=== PATIENT | male | born 1950 | race Caucasian/White ===

== ENCOUNTER 2018-11-20 00:26 | Inpatient (IN) | payer BC, OTHER ==
[~2018-11-20] VITALS: Ht 172.7 cm; Wt 80.7 kg
[~2018-11-20 00:26] MED LIST: AMIO200T PO; AMOX-999 PO; ASPI-1129 PO; ATOR20TA40; CARV6.252 PO; DIGO-91 PO; FAMO40TA12; LISI-424 PO; SACC250C1 PO; SPIR25TA20 PO; XAR10 PO
--- NOTE | 2018-11-20 00:41 | NUR ---
PT TAKEN TO BED 11.
[2018-11-20 00:43] VITALS: BP 151/106
--- NOTE | 2018-11-20 00:52 | NUR ---
Dr. Lim evaluating patient at bedside.
--- NOTE | 2018-11-20 01:03 | NUR ---
PT TO ED WITH C/O SOB FOR PAST 2 DAYS . PT HAS HX OF A.FIB, CHF AND HTN AND HAS BEEN UNABLE TO TAKE MEDICATIONS FOR PAST 2 MONTHS DOES NOT RECALL NAMES OF MEDICATIONS OTHER THAN XARELTO. PT AWAKE AND SPEAKS SENTENCES BUT BECOMES SOB VERY EASILY. LUNG SOUNDS DIMISHED BILATERALLY. PT PLACED INTO BED, ER MD AT BEDSIDE.
[2018-11-20 01:19] LABS: BASOPHILS % (AUTO) 0.4 % (0.0-2.0); EOSINOPHILS # (AUTO) 0.1 K/uL (0-0.4); HEMATOCRIT 40.8 % (36-52); HEMOGLOBIN 13.2 g/dL (12.0-18.0); LYMPHOCYTES # (AUTO) 1.9 K/uL (2.0-11.5); LYMPHOCYTES % (AUTO) 19.4 % (20.5-51.1); MEAN CORPUSCULAR HEMOGLOBIN 25 pg (27-31); MEAN CORPUSCULAR HGB CONC 32 g/dL (33-37); MEAN CORPUSCULAR VOLUME 76.9 fL (80-94); MONOCYTES # (AUTO) 0.7 K/uL (0.8-1.0); MONOCYTES % (AUTO) 7.3 % (1.7-9.3); NEUTROPHILS # (AUTO) 6.9 K/uL (1.8-7.7); NEUTROPHILS % (AUTO) 71.9 % (42.2-75.2); PLATELET COUNT (AUTO) 306 K/uL (140-450); RED CELL DISTRIBUTION WIDTH 18.6 % (11.6-13.7); WHITE BLOOD COUNT (AUTO) 9.7 K/uL (4.8-10.8)
[2018-11-20 01:29] LABS: CARBON DIOXIDE 27.1 mmol/L (21-32); CREATININE 1.1 mg/dL (0.7-1.3); POTASSIUM 4.1 mmol/L (3.5-5.1)
[2018-11-20 01:35] LABS: ALBUMIN 3.4 g/dL (3.4-5.0); TOTAL BILIRUBIN 1.1 mg/dL (0.0-1.0)
[2018-11-20] MEDS ORDERED: DILTIAZEM 25 MG/5 ML VIAL IVP ONE (01:40)
[2018-11-20 01:42] LABS: CREATINE KINASE MB 2.5 ng/mL (0-3.6)
[2018-11-20] MEDS ORDERED: ASPIRIN 325 MG TAB PO ONE (01:45)
--- NOTE | 2018-11-20 03:02 | NUR ---
PT TOLERATED CARDIZEM IV PUSH WITHOUT ANY COMPLICATIONS. HR REMAINS IN 130S. ER MD NOTIFED.
--- NOTE | 2018-11-20 03:30 | NUR ---
INFORMED PT PLAN TO ADMIT, NO NEW QUESTIONS OR CONCERNS.
[2018-11-20] MEDS ORDERED: DOCUSATE SODIUM 100 MG GELCAP PO PRN (03:45)
[2018-11-20] MEDS ORDERED: ONDANSETRON 4 MG/2 ML VIAL IM/IVP PRN (03:45)
[2018-11-20] MEDS ORDERED: ALBUTEROL SULFATE/IPRATROPIU 3 ML SOL IH PRN (03:45)
[2018-11-20] MEDS ORDERED: ACETAMINOPHEN 325 MG TAB PO PRN (03:45)
--- NOTE | 2018-11-20 04:15 | NUR ---
Patient will be admitted to care of DR DIXON. Admited to TELE. Will go to room 125-B. Belongings list completed. Report to PROMISE ÁLVAREZ.
[2018-11-20 04:29] LABS: THYROID STIMULATING HORMONE 2.27 uIU/mL (0.34-3.74)
[2018-11-20 04:30] VITALS: BP 118/76
--- NOTE | 2018-11-20 04:40 | NUR ---
AMBULATED TO WITH STEADY GAIT AND VOIDED FREELY WITH CLEAR YELLOW URINE 150ML, URINE SPECIMEN SENT TO LAB FOR TEST, PT REFUSED TO TAKE OFF HIS PANTS, ENCOURAGE TO TAKE A SHOWER OR BRUSH HIS TEETH BUT PT STATED "NOT RIGHT NOW", DR QUINN MADE AWARE.
[2018-11-20 04:50] LABS: PROTHROMBIN TIME 10.1 secs (10.8-13.4)
[2018-11-20 05:30] LABS: APPEARANCE,URINE CLEAR (CLEAR); BILIRUBIN,URINE NEGATIVE (NEGATIVE); BLOOD, URINE NEGATIVE (NEGATIVE); COLOR,URINE YELLOW (YELLOW); LEUKOCYTE ESTERASE ,URINE NEGATIVE (NEGATIVE); NITRITE, URINE NEGATIVE (NEGATIVE); UGLUCOSE NEGATIVE (NEGATIVE)
[2018-11-20 05:38] LABS: BARBITURATE, URINE NEG. ng/ml (NEG <=200); BENZODIAZEPINE, URINE NEG. ng/mL (NEG <=200); CANNABINOID, URINE NEG. ng/mL (NEG <=50); COCAINE, URINE NEG. ng/mL (NEG <=300); OPIATE, URINE NEG. ng/mL (NEG <=2000); PHENCYCLIDINE SCREEN,URINE NEG. ng/mL (NEG <=25)
--- NOTE | 2018-11-20 06:30 | NUR ---
PT SEEN AWAKE, TACHYPNEIC, MOUTH BREATHER, INSTRUCTED PT TO BREATH THROUGH HIS NOSTRILS, O2 SAT-95% ON 2L NC, MONITORED CLOSELY.
--- NOTE | 2018-11-20 07:12 | NUR ---
PT AWAKE, NO SIGNS OF DISTRESS, BEDSIDE REPORT GIVEN TO PROMISE ALMENDAREZ FOR CONTINUITY OF CARE.
--- NOTE | 2018-11-20 07:14 | NUR ---
RECEIVED BEDSIDE REPORT FROM FIELD ASSEMBLY SUPERVISOR NURSE FOR CONTINUITY OF CARE. PATIENT IS AWAKE AND RESTING ON BED AT THIS TIME. PATIENT IS AAOX4. RESPIRATION EVEN AND UNLABORED ON 2LPM VIA NC, SPO2 IS AT 96%. DENIES PAIN AND SOB. NO SIGNS OF DISTRESS NOTED. IV ON L [id number], INTACT AND CLEAN, SL. SKIN INTACT AND CLEAN. PATIENT IS ABLE TO AMBULATE WITH STANDBY ASSIST. DISCUSSED PLAN OF CARE WITH PATIENT, AND PATIENT VERBALIZED. TELE MONITOR IN PLACE. SPO2 MONITOR BY BEDSIDE. BED IN LOW POSITION AND CALL LIGHT WITHIN REACH. INSTRUCTED PATIENT TO USE THE CALL LIGHT FOR ANY ASSISTANCE, PATIENT IS AWARE.
[2018-11-20 08:00] VITALS: BP 119/87
[2018-11-20] MEDS: NICOTINE TRANSD SYS 21 MG/24 HR PATCH TD SCH (08:58)
[2018-11-20] MEDS ORDERED: LISINOPRIL 5 MG PO SCH (09:00)
[2018-11-20] MEDS ORDERED: DIGOXIN PO SCH (09:00)
[2018-11-20] MEDS: DIGOXIN 0.125 MG TAB PO SCH (09:00)
[2018-11-20] MEDS: LISINOPRIL 5 MG TAB PO SCH (09:02)
--- NOTE | 2018-11-20 09:03 | NUR ---
CHECKED BP PRIOR TO MED ADMINISTER, BP 117/72, MAP 86, PULSE 66. MEDICATION EDUCATION PROVIDED TO PATIENT AND PATIENT VERBALIZED UNDERSTANDING. ADMINISTERED MEDS PER MD ORDER, PATIENT TOLERATED WELL. PATIENT IS LYING DOWN ON BED AND TALKING TO JOHNNY ON THE PHONE. RESPIRATION EVEN AND UNLABORED ON 2LPM VIA NC, SPO2 IS AT 96% AT THIS TIME. NO SIGNS OF DISTRESS NOTED. TELE MONITOR ATTACHED. BED IN LOW POSITION AND CALL LIGHT WITHIN REACH. INSTRUCTED PATIENT TO USE THE CALL LIGHT FOR ANY ASSISTANCE AND PATIENT WAS AWARE.
--- NOTE | 2018-11-20 09:56 | NUR ---
ASSISTED PATIENT TO USE THE BATHROOM AND GET BACK ON BATHROOM. APPLIED 2LPM VIA NC ON PATIENT, AND SPO2 IS 99% THIS TIME. ASKED PATIENT IF HE WOULD LIKE TO TAKE A SHOWER, PATIENT SAID " NOT YET, MAYBE LATER. I DON'T FEEL LIKE IT NOW." SAFETY MEASURES IN PLACE. TELE MONITOR ATTACHED. SPO2 MONITOR ATTACHED. BED IN LOW POSITION AND CALL LIGHT WITHIN REACH. INSTRUCTED PATIENT TO USE THE CALL LIGHT FOR ANY ASSISTANCE AND PATIENT WAS AWARE.
--- NOTE | 2018-11-20 10:09 | NUR ---
RECEIVED CRITICAL VALUE FOR TROPONIN 0.[address] MESA. DR MESA WAS AWARE. PER DR MESA, PATIENT HAS A CONSULT FOR DR JOHANSEN.
--- NOTE | 2018-11-20 11:25 | NUR ---
PATIENT CAME BACK FROM WALKING ON THE [address] WAY. PATIENT DENIES PAIN, LIGHTHEADEDNESS AND SOB. REQUESTED FOR AN APPLE JUICE AND PROVIDED. ASKED IF PATIENT WANT TO TAKE A SHOWER AND PATIENT SAID " NO." INTERNET MARKETING STRATEGIST IS CHANGING PATIENT'S BED. NO SIGNS OF DISTRESS NOTED. TELE MONITOR IN PLACE. SPO2 MONITOR IN PLACE. BED IN LOW POSITION AND CALL LIGHT WITHIN REACH. INSTRUCTED PATIENT TO USE THE CALL LIGHT FOR ANY ASSISTANCE AND PATIENT WAS AWARE.
[2018-11-20 12:00] VITALS: BP 115/69
--- NOTE | 2018-11-20 13:20 | NUR ---
PATIENT IS RESTING ON BED AT THIS TIME. DENIES PAIN AND SOB. NO SIGNS OF DISTRESS NOTED. TELE MONITOR ATTACHED. SAFETY MEASURES IN PLACE. BED IN LOW POSITION AND CALL LIGHT WITHIN REACH. INSTRUCTED PATIENT TO USE THE CALL LIGHT FOR ANY ASSISTANCE AND PATIENT WAS AWARE.
--- NOTE | 2018-11-20 14:05 | NUR ---
PATIENT IS AWAKE AND SITTING UP ON BED. DENIES PAIN AND SOB. ASKED IF PATIENT WOULD LIKE TO TAKE A SHOWER AT THIS TIME, PATIENT SAID " NAH, NOT NOW. I WILL LET YOU KNOW WHEN I WANT TO SHOWER." TELE MONITOR IN PLACE. BED IN LOW POSITION AND CALL LIGHT WITHIN REACH. INSTRUCTED PATIENT TO USE THE CALL LIGHT FOR ANY ASSISTANCE AND PATIENT WAS AWARE.
--- NOTE | 2018-11-20 15:35 | NUR ---
PATIENT IS SITTING UP ON BED AND WATCHING TV. DENIES PAIN AND SOB. NO SIGNS OF DISTRESS NOTED. TELE MONITOR IN PLACE. BED IN LOW POSITION AND CALL LIGHT WITHIN REACH. INSTRUCTED PATIENT TO UES THE CALL LIGHT FOR ANY ASSISTANCE AND PATIENT WAS AWARE.
[2018-11-20 16:00] VITALS: BP 124/82
[2018-11-20] MEDS: RIVAROXABAN 10 MG TAB PO SCH (16:49)
--- NOTE | 2018-11-20 17:24 | NUR ---
PATIENT IS RESTING ON BED AT THIS TIME. NO SIGNS OF DISTRESS NOTED. TELE MONITOR ATTACHED. SAFETY MEASURES IN PLACE. BED IN LOW POSITION AND CALL LIGHT WITHIN REACH. INSTRUCTED PATIENT TO USE THE CALL LIGHT FOR ANY ASSISTANCE AND PATIENT VERBALIZED UNDERSTANDING.
--- NOTE | 2018-11-20 19:18 | NUR ---
ENDORSED PATIENT AT BEDSIDE TO BUNDLE WRAPPER NURSE FOR CONTINUITY OF CARE. PATIENT IS AWAKE AND WATCHING TV ON BED AT THIS TIME. RESPIRATION EVEN AND UNLABORED ON RA, SPO2 IS 96%. NO SIGNS OF DISTRESS NOTED. TELE MONITOR IN PLACE. SAFETY MEASURES IN PLACE.
--- NOTE | 2018-11-20 19:18 | NUR ---
RELIEVED REPORT AT BEDSIDE FORM TANESHA RN DAYSHIFT NURSE AT BEDSIDE FOR CONTINUITY OF CARE, PT IN STABLE CONDITION.
[2018-11-20 20:00] VITALS: BP 96/78
--- NOTE | 2018-11-20 20:00 | NUR ---
PT IN LOW BED WITH SIDE RAILS UP X2. HE IS AOX4, WITH NO S/S OF PAIN OR DISTRESS NOTED. V/S FOLLOWS T 98.7 P 60 R 18 B/P 129/87 02 97%. DERRICK AT BEDSIDE. CALL BERRY IN REACH.
--- NOTE | 2018-11-20 22:00 | NUR ---
PT IN BED NO S/S OF PAIN OT DISTRESS NOTED. FAMILY LEFT BEDSIDE
[2018-11-21] VITALS: BP 112/80
--- NOTE | 2018-11-21 00:15 | NUR ---
PT IN BED ASLEEP BUT AROUSABLE TO NAME AND LIGHT TOUCH.V/S A FOLLOWS T 97.0 P 62 R 18 B/P 96/78 02 97% ON ROOM AIR. NO S/S OF PAIN OR DISTRESS NOTED. PT DANILO ANY PAIN OR DISTRESS.
[2018-11-21 04:00] VITALS: BP 143/88
--- NOTE | 2018-11-21 04:00 | NUR ---
PT IN BED SLEEPING BUT AROUSABLE TO NAME, V/S FOLLOWS T T 97.8 P 62 R 18 B/P 143/88 02 94% ON ROOM AIR.NO S/S OF PAIN OR DISTRESS NOTED.
[2018-11-21 07:09] LABS: BASOPHILS % (AUTO) 0.5 % (0.0-2.0); EOSINOPHILS # (AUTO) 0.1 K/uL (0-0.4); EOSINOPHILS % (AUTO) 1.9 % (0.0-4.0); HEMATOCRIT 41.6 % (36-52); HEMOGLOBIN 13.4 g/dL (12.0-18.0); LYMPHOCYTES # (AUTO) 2.1 K/uL (2.0-11.5); LYMPHOCYTES % (AUTO) 28.2 % (20.5-51.1); MEAN CORPUSCULAR HEMOGLOBIN 25 pg (27-31); MEAN CORPUSCULAR HGB CONC 32 g/dL (33-37); MEAN CORPUSCULAR VOLUME 77.3 fL (80-94); MONOCYTES # (AUTO) 0.8 K/uL (0.8-1.0); MONOCYTES % (AUTO) 10.5 % (1.7-9.3); NEUTROPHILS # (AUTO) 4.4 K/uL (1.8-7.7); NEUTROPHILS % (AUTO) 58.9 % (42.2-75.2); PLATELET COUNT (AUTO) 270 K/uL (140-450); RED BLOOD CELL COUNT(AUTO) 5.39 MIL/uL (4.20-6.10); RED CELL DISTRIBUTION WIDTH 18.7 % (11.6-13.7); WHITE BLOOD COUNT (AUTO) 7.4 K/uL (4.8-10.8)
--- NOTE | 2018-11-21 07:17 | NUR ---
CARE ENDORSED TO ROCHELLE VIRGEN DAYSHIFT NURSE AT BEDSIDE FOR CONTINUITY OF CARE, PT IN STABLE CONDITION.
--- NOTE | 2018-11-21 07:20 | NUR ---
RECEIVED PT FROM EMPLOYEE WELFARE MANAGER NURSE, PT IS AWAKE AND LYING ON THE BED WITH SIDE RAILS UP AND CALL LIGHT WITHIN REACH, PT HAS AN IV LINE ON THE LEFT HAND G.18 ON SALINE LOCK, PT DENIES PAIN AND NO SOB NOTED. WILL MONITOR PT.
[2018-11-21 07:44] LABS: ANION GAP 14.8 (8-16); CARBON DIOXIDE 25.5 mmol/L (21-32); CREATININE 1.1 mg/dL (0.7-1.3); POTASSIUM 4.3 mmol/L (3.5-5.1)
[2018-11-21 07:47] LABS: MAGNESIUM 2.1 mg/dL (1.8-2.4)
[2018-11-21 08:00] VITALS: BP 124/94
--- NOTE | 2018-11-21 08:10 | NUR ---
PT IS AWAKE AND SEATED ON THE BED, VITAL SIGNS CHECKED AND BP IS 124/94, PULSE IS 82, TEMPERATURE IS 98.5, O2 SATURATION IS 99%, RESPIRATION IS 22/MIN AND EVEN.NO SIGN OF DISTRESS NOTED AN WILL MONITOR PT.
--- NOTE | 2018-11-21 09:31 | NUR ---
PATIENT HAS BEEN SCREENED AND CATEGORIZED MODERATE NUTRITION RISK. PATIENT WILL BE SEEN WITHIN 3-5 DAYS OF ADMISSION. 11/22/18-11/24/[address]
[2018-11-21] MEDS: NICOTINE TRANSD SYS 21 MG/24 HR PATCH TD SCH (09:39)
[2018-11-21] MEDS: LISINOPRIL 5 MG TAB PO SCH (09:40)
[2018-11-21] MEDS: DIGOXIN 0.125 MG TAB PO SCH (09:40)
--- NOTE | 2018-11-21 09:42 | NUR ---
PT IS AWAKE AND DR. POOLE CAME AND SPOKE TO PT, V/S CHECKED AND BP IS 115/73, PULSE IS 69. 02 SATURATION IS 97%, MANSI AND PATCH MEDICATIONS WERE GIVEN AND PT TOLERATED IT. NO SIGN OF DISTRESS NOTED AND WILL MONITOR PT.
[2018-11-21 12:00] VITALS: BP 137/94
[2018-11-21] MEDS ORDERED: FUROSEMIDE 20 MG/2 ML VIAL IVP SCH (12:00)
--- NOTE | 2018-11-21 12:08 | NUR ---
PT IS AWAKE AND LASIX WAS GIVEN VIA IV PUSH, V/S CHECKED AND IS STABLE. WILL MONITOR PT.
--- NOTE | 2018-11-21 14:09 | NUR ---
PT'S HEART RATE ON MONITOR WENT UP TO 137, PT VERBALIZED THAT HE FEELS OK. INFORMED DR. NEWTON AND SHOWED EKG READING, SAID THAT IT'S FINE. WILL MONITOR PT
[2018-11-21 16:00] VITALS: BP 128/98
[2018-11-21] MEDS: RIVAROXABAN 10 MG TAB PO SCH (16:48)
--- NOTE | 2018-11-21 16:49 | NUR ---
ORAL MEDICATION WAS GIVEN TO PT NOW, PARAMETER CHECKED. WILL MONITOR PT.
--- NOTE | 2018-11-21 19:05 | NUR ---
RECEIVED PATIENT FOR CONTINUITY OF CARE. PATIENT IS ALERT, AWAKE, LYING DOWN IN BED. ON ROOM AIR. WITH LEFT HAND 18 G SALINE LOCK. PATIENT IS IN STABLE CONDITION. WILL MONITOR PATIENT THROUGHOUT SHIFT.
--- NOTE | 2018-11-21 19:05 | NUR ---
ENDORSED PT TO SPLITTING MACHINE TENDER NURSE FOR CONTINUITY OF CARE.
[2018-11-21 20:00] VITALS: BP 117/71
[2018-11-21] MEDS: FUROSEMIDE 20 MG/2 ML VIAL IVP SCH (20:25)
--- NOTE | 2018-11-21 20:25 | NUR ---
ADMINISTERED LASIX MEDICATION IV PUSH ORDERED. PATIENT TOLERATED IT WELL.
--- NOTE | 2018-11-21 21:45 | NUR ---
CAME AND VISITED PT. PT SITTING ON SIDE OF BED.
--- NOTE | 2018-11-21 23:00 | NUR ---
PATIENT LYING DOWN, ASLEEP, WITH NO SIGNS OF DISTRESS. WILL CONTINUE TO MONITOR PATIENT.
[2018-11-22] VITALS: BP 137/84
--- NOTE | 2018-11-22 | NUR ---
PATIENT LYING DOWN, ASLEEP. VITAL SIGNS TAKEN AND CHARTED. PATIENT DENIES PAIN AT THIS TIME. WILL CONTINUE TO MONITOR PATIENT.
--- NOTE | 2018-11-22 02:05 | NUR ---
MADE ROUNDS. PATIENT LYING DOWN IN BED, ASLEEP WITH NO SIGNS OF DISTRESS. WILL CONTINUE TO MONITOR PATIENT.
[2018-11-22 04:00] VITALS: BP 136/86
--- NOTE | 2018-11-22 06:05 | NUR ---
PATIENT IS LYING DOWN, STILL SLEEPING, WITH NO SIGNS OF DISTRESS. WILL CONTINUE TO MONITOR PATIENT.
--- NOTE | 2018-11-22 07:00 | NUR ---
ENDORSED PATIENT TO AM SHIFT NURSE FOR CONTINUITY OF CARE. PATIENT IS LYING DOWN IN BED, ON STABLE CONDITION.
--- NOTE | 2018-11-22 07:05 | NUR ---
RECEIVED PT FROM BLOW DOWN OPERATOR NURSE, PT IS ASLEEP LYING ON THE BED WITH SIDE RAILS UP AND CALL LIGHT WITHIN REACH, PT HAS AN IV LINE ON THE LEFT HAND G. 18 ON SALINE LOCK, RESPIRATION IS EVEN AND NO SIGN OF DISTRESS NOTED. WILL MONITOR PT.
[2018-11-22 07:08] LABS: ANION GAP 12.9 (8-16); CARBON DIOXIDE 24.9 mmol/L (21-32); CREATININE 1.2 mg/dL (0.7-1.3); POTASSIUM 3.8 mmol/L (3.5-5.1)
[2018-11-22 07:19] LABS: BASOPHILS % (AUTO) 0.7 % (0.0-2.0); EOSINOPHILS # (AUTO) 0.2 K/uL (0-0.4); EOSINOPHILS % (AUTO) 2.9 % (0.0-4.0); HEMATOCRIT 41.3 % (36-52); HEMOGLOBIN 13.5 g/dL (12.0-18.0); LYMPHOCYTES % (AUTO) 30.5 % (20.5-51.1); MEAN CORPUSCULAR HEMOGLOBIN 25 pg (27-31); MEAN CORPUSCULAR HGB CONC 33 g/dL (33-37); MEAN CORPUSCULAR VOLUME 76.5 fL (80-94); MONOCYTES # (AUTO) 0.6 K/uL (0.8-1.0); MONOCYTES % (AUTO) 9.6 % (1.7-9.3); NEUTROPHILS # (AUTO) 3.8 K/uL (1.8-7.7); NEUTROPHILS % (AUTO) 56.3 % (42.2-75.2); PLATELET COUNT (AUTO) 272 K/uL (140-450); RED CELL DISTRIBUTION WIDTH 18.3 % (11.6-13.7); WHITE BLOOD COUNT (AUTO) 6.7 K/uL (4.8-10.8)
[2018-11-22 07:22] LABS: PHOSPHORUS 3.8 mg/dL (2.5-4.9)
--- NOTE | 2018-11-22 07:55 | NUR ---
PT IS AWAKE AND VITAL SIGNS CHECKED DONE, BP IS 99/62, PULSE IS 106, TEMP. IS 97.8, O2 SATURATION IS 93%, RESPIRATION IS EVEN AND AT 18/MIN, NO SIGN OF DISTRESS NOTED AND WILL MONITOR PT.
[2018-11-22 08:00] VITALS: BP 99/62
[2018-11-22] MEDS: NICOTINE TRANSD SYS 21 MG/24 HR PATCH TD SCH (08:54)
[2018-11-22] MEDS: DIGOXIN 0.125 MG TAB PO SCH (08:55)
--- NOTE | 2018-11-22 08:55 | NUR ---
PT IS AWAKE AND VITAL SIGNS CHECKED DONE, BP IS 91/50, PULSE IS 62, O2 SATURATION IS 93%, ORAL MEDICATIONS WERE GIVEN BUT LASIX AND LISINOPRIL WERE NOT GIVEN TO PT AND WERE HELD BECAUSE OF THE LOW BP READING, DR. WOMACK NOTIFIED. NO SIGN OF DISTRESS NOTED AND WILL MONITOR PT.
[2018-11-22] MEDS: FUROSEMIDE 20 MG/2 ML VIAL IVP SCH (08:56)
[2018-11-22] MEDS: LISINOPRIL 5 MG TAB PO SCH (08:56)
[2018-11-22 12:00] VITALS: BP 123/84
--- NOTE | 2018-11-22 12:45 | NUR ---
OPT'S HEART RATE WAS SEEN TO BE 130 IN THE YARD JOCKEY AND PT WAS CHECKED, PT IS ASYMPTOMATIC AND WAS ABOUT TO EAT HIS LUNCH. WILL MONITOR PT.
--- NOTE | 2018-11-22 14:30 | NUR ---
PT WAS BEING CLEANED BY STRETCH BOX TENDER.
[2018-11-22 16:00] VITALS: BP 121/91
[2018-11-22] MEDS: RIVAROXABAN 10 MG TAB PO SCH (16:36)
--- NOTE | 2018-11-22 16:37 | NUR ---
PT IS AWAKE AND PARAMETER CHECKED, ORAL MEDICATION WAS CHECKED AND PT TOLERATED IT. WILL MONITOR PT.
--- NOTE | 2018-11-22 19:28 | NUR ---
ENDORSED PT TO SWEET POTATO DISINTEGRATOR NURSE FOR CONTINUITY OF CARE.
--- NOTE | 2018-11-22 19:29 | NUR ---
RECEIVED BEDSIDE REPORT FROM DAY SHIFT PROMISE BYRD. PT A/OX 4. DISCUSSED PLAN OF CARE. VERBALIZED UNDERSTANDING. ABLE TO MAKE NEEDS KNOWN. STD PRECAUTIONS. CONTINENT. AMBULATORY. STEADY GAIT. AT BEDSIDE. TELE MONITOR. CARDIAC DIET. ROOM AIR. NO SIGNS OF DISTRESS. SKIN IS INTACT. L HAND 18G SALINE LOCK. PATENT AND INTACT. BED IN LOW POSITION. CALL LIGHT WITHIN REACH. WILL CONTINUE TO MONITOR.
[2018-11-22 20:00] VITALS: BP 138/78
--- NOTE | 2018-11-22 21:00 | NUR ---
PT REQUESTED TO BE MOVED FROM ROOM. AND TO CALL TO TAKE HIM HOME DUE TO MUCH PEOPLE IN THE ROOM TALKING WITH THE PATIENT IN BED A. I ASKED PT IF WE CAN GET HIM SETTLED INTO ANOTHER ROOM WHERE IT WILL BE MORE QUIET. HE AGREED.
--- NOTE | 2018-11-22 21:52 | NUR ---
ROOM IS READY FOR PT IN BED A TO BE MOVED. PT IN BED (A) FAMILY IS STILL AT BEDSIDE. MADE PT AWARE THAT ROOM IS READY FOR PT IN BED A TO BE MOVED. WAITING ON NURSE FOR BED A. WILL CONTINUE TO MONITOR.
--- NOTE | 2018-11-22 22:30 | NUR ---
PT NO LONGER SHARING THE ROOM. BED A WAS MOVED TO ANOTHER ROOM. PT STATES HES MORE COMFORTABLE AND HE WILL STAY IN THE HOSPITAL AND NO LONGER BE LEAVING.
[2018-11-23] VITALS: BP 120/77
--- NOTE | 2018-11-23 00:10 | NUR ---
VITALS TAKEN. TOLERATED WELL. 98.2 TEMP. 120/77 BP. 97%. 119 PULSE. PT REMAINS TACHYCARDIC. WILL CONTINUE TO MONITOR.
--- NOTE | 2018-11-23 01:55 | NUR ---
ASSISTED PT TO BATHROOM. AMBULATORY. STEADY GAIT. BACK IN BED. NO SIGNS OF RESP DISTRESS. NO SOB. WILL CONTINUE TO MONITOR.
--- NOTE | 2018-11-23 03:34 | NUR ---
PT IS AWAKE IN BED. NO PAIN REPORTED. NO SOB. NO SIGNS OF DISTRESS. WILL CONTINUE TO MONITOR.
[2018-11-23 04:00] VITALS: BP 118/75
--- NOTE | 2018-11-23 05:04 | NUR ---
PT IS SLEEPING IN BED EASILY AROUSABLE. EVEN CHEST RISE. NO SOB. NO SIGNS OF DISTRESS. NO PAIN AT THIS TIME. WILL CONTINUE TO MONITOR.
[2018-11-23 05:43] LABS: ANION GAP 11.7 (8-16); CARBON DIOXIDE 26.6 mmol/L (21-32); CREATININE 1.3 mg/dL (0.7-1.3); POTASSIUM 4.3 mmol/L (3.5-5.1)
--- NOTE | 2018-11-23 06:38 | NUR ---
WILL ENDORSE PT TO DAY SHIFT RN FOR CONTINUITY OF CARE. PT IN STABLE CONDITION. WILL CONTINUE TO MONITOR.
[2018-11-23 06:50] LABS: BASOPHILS % (AUTO) 0.6 % (0.0-2.0); EOSINOPHILS # (AUTO) 0.2 K/uL (0-0.4); EOSINOPHILS % (AUTO) 2.4 % (0.0-4.0); HEMATOCRIT 42.3 % (36-52); HEMOGLOBIN 13.6 g/dL (12.0-18.0); LYMPHOCYTES # (AUTO) 2.4 K/uL (2.0-11.5); LYMPHOCYTES % (AUTO) 32.5 % (20.5-51.1); MEAN CORPUSCULAR HEMOGLOBIN 25 pg (27-31); MEAN CORPUSCULAR HGB CONC 32 g/dL (33-37); MEAN CORPUSCULAR VOLUME 77.2 fL (80-94); MONOCYTES # (AUTO) 0.6 K/uL (0.8-1.0); MONOCYTES % (AUTO) 8.6 % (1.7-9.3); NEUTROPHILS # (AUTO) 4.1 K/uL (1.8-7.7); NEUTROPHILS % (AUTO) 55.9 % (42.2-75.2); PLATELET COUNT (AUTO) 297 K/uL (140-450); RED BLOOD CELL COUNT(AUTO) 5.48 MIL/uL (4.20-6.10); RED CELL DISTRIBUTION WIDTH 18.6 % (11.6-13.7); WHITE BLOOD COUNT (AUTO) 7.4 K/uL (4.8-10.8)
--- NOTE | 2018-11-23 07:20 | NUR ---
RECEIVED BEDSIDE REPORT FROM PHARMACY CUSTOMER CARE SPECIALIST NURSE. PT IS ASLEEP, NO S/S OF ANY ACUTE DISTRESS OR SOB. PT IS ON ROOM AIR, SKIN IS INTACT. IV IS ON THE L HAND, 18 G, SALINE LOCKED. PT IS AMBULATORY AND NOT A FALL RISK. PT IS ON 1500 ML/DAY FLUID RESTRICTION. CALL LIGHT IS WITHIN REACH. WILL CONTINUE TO MONITOR.
[2018-11-23 08:00] VITALS: BP 99/77
[2018-11-23] MEDS ORDERED: FURO20TA8 PO (08:05)
[2018-11-23] MEDS ORDERED: POTA10TE30 PO (08:05)
[2018-11-23] MEDS ORDERED: POTASSIUM CHLORIDE 10 MEQ TABER PO SCH (09:00)
[2018-11-23] MEDS ORDERED: FUROSEMIDE 20 MG TAB PO SCH (09:00)
[2018-11-23] MEDS: LISINOPRIL 5 MG TAB PO SCH (09:53)
[2018-11-23] MEDS: DIGOXIN 0.125 MG TAB PO SCH (09:54)
[2018-11-23] MEDS: NICOTINE TRANSD SYS 21 MG/24 HR PATCH TD SCH (09:54)
[2018-11-23] MEDS ORDERED: PNEUMOCOCCAL VACCINE 23 MCG/0.5 ML VIAL IMVAC SCH (11:50)
--- NOTE | 2018-11-23 14:17 | NUR ---
PT'S DERRICK CALLED BACK, I TOLD HER THAT PT IS READY TO BE PICKED UP TO GO HOME. SHE SAID SHE WILL BE ON HER WAY SOON.
--- NOTE | 2018-11-23 15:00 | NUR ---
PT HAS DISCHARGED. PNA VACCINE WAS GIVEN UPON DC. WRIST BANDS AND IV SITE REMOVED. DISCHARGE INSTRUCTIONS AND PRESCRIPTIONS GIVEN, PT VERBALIZED UNDERSTANDING. PT LEFT WITH HIS .
== END 2018-11-23 15:00 | disposition home or self-care (01) | DRG 280 ==
LOC: MED 00:26 → MMU 03:51
PROVIDERS: ADMIT General Practice; ATTEND General Practice
PROC: 3E0234Z Introduction of Serum, Toxoid and Vaccine into Muscle, Percutaneous Approach (ICD-10-PCS; principal; 2018-11-23)
DX: I21.A1 Myocardial infarction type 2 (principal); I50.43 Acute on chronic combined systolic (congestive) and diastolic (congestive) heart failure; J44.1 Chronic obstructive pulmonary disease with (acute) exacerbation; I42.9 Cardiomyopathy, unspecified; I11.0 Hypertensive heart disease with heart failure; F15.10 Other stimulant abuse, uncomplicated; I48.2 Chronic atrial fibrillation; F17.200 Nicotine dependence, unspecified, uncomplicated; Z23 Encounter for immunization; Z79.82 Long term (current) use of aspirin; Z79.899 Other long term (current) drug therapy; Z91.14 Patient's other noncompliance with medication regimen; Z71.51 Drug abuse counseling and surveillance of drug abuser; Z71.6 Tobacco abuse counseling
CPT/HCPCS: 36415; 71045; 80048; 80053; 80162; 80305; 81003; 82550; 82553; 83036; 83690; 83735; 83880; 84100; 84134; 84443; 84484; 85025; 85610; 85730; 87081; 90732; 93005; 96374; 99285; J1940; J3490; J7620; Q0092

== ENCOUNTER 2019-02-09 01:18 | Inpatient (IN) | payer OTHER ==
[~2019-02-09] VITALS: Ht 172.7 cm; Wt 68.5 kg
[~2019-02-09 01:18] MED LIST changes: -AMIO200T PO; -AMOX-999 PO; -ATOR20TA40; -CARV6.252 PO; -FAMO40TA12; +FURO20TA8 PO; +POTA10TE30 PO; -SACC250C1 PO; -SPIR25TA20 PO
--- NOTE | 2019-02-09 01:35 | NUR ---
PT AMBULATED TO BED 02.
--- NOTE | 2019-02-09 01:35 | NUR ---
PT CAME TO ER C/O SHORTNESS OF BREATH TODAY. PT RESPIRATIONS ARE LABORED. BREATH SOUNDS ARE BILATERAL WHEEZING THROUGHOUT. O2 SATURATION 94% ON ROOM AIR. PT DENIES PAIN, PAIN LEVEL 0/10. NKA. MED HX: A.FIB AND HTN. PT IS NONCOMPLIANT WITH MEDICATIONS. SAFETY MEASURES IN PLACE. PT PLACED IN HIGH LEMUS'S POSITION. ERMD MADE AWARE OF PT STATUS.
[2019-02-09 01:44] VITALS: BP 149/107
[2019-02-09] MEDS ORDERED: methylPREDNISolone SS 125 MG/2 ML VIAL IM ONE (01:45)
[2019-02-09] MEDS ORDERED: ALBUTEROL SULFATE/IPRATROPIU 3 ML SOL IH ONE ×2 (01:45→03:35)
--- NOTE | 2019-02-09 01:45 | NUR ---
PER PT "I THINK I HAD TOO MUCH BEER TODAY, THIS HAPPENS EVERYTIME I DRINK TOO MUCH"
--- NOTE | 2019-02-09 01:55 | NUR ---
XRAY AT BEDSIDE
--- NOTE | 2019-02-09 02:10 | NUR ---
RT AT BEDSIDE
[2019-02-09 02:12] LABS: BASOPHILS % (AUTO) 0.3 % (0.0-2.0); EOSINOPHILS # (AUTO) 0.1 K/uL (0-0.4); EOSINOPHILS % (AUTO) 1.5 % (0.0-4.0); HEMATOCRIT 41.5 % (36-52); HEMOGLOBIN 13.5 g/dL (12.0-18.0); LYMPHOCYTES # (AUTO) 2.2 K/uL (2.0-11.5); LYMPHOCYTES % (AUTO) 32.5 % (20.5-51.1); MEAN CORPUSCULAR HEMOGLOBIN 26 pg (27-31); MEAN CORPUSCULAR HGB CONC 33 g/dL (33-37); MEAN CORPUSCULAR VOLUME 79.4 fL (80-94); MONOCYTES # (AUTO) 0.5 K/uL (0.8-1.0); MONOCYTES % (AUTO) 6.7 % (1.7-9.3); PLATELET COUNT (AUTO) 302 K/uL (140-450); RED BLOOD CELL COUNT(AUTO) 5.23 MIL/uL (4.20-6.10); RED CELL DISTRIBUTION WIDTH 18.1 % (11.6-13.7); WHITE BLOOD COUNT (AUTO) 6.8 K/uL (4.8-10.8)
[2019-02-09 02:19] LABS: CARBON DIOXIDE 25.8 mmol/L (21-32); CREATININE 1.1 mg/dL (0.7-1.3); POTASSIUM 3.8 mmol/L (3.5-5.1)
[2019-02-09 02:25] LABS: ALBUMIN 3.2 g/dL (3.4-5.0); TOTAL BILIRUBIN 1.3 mg/dL (0.0-1.0)
[2019-02-09] MEDS ORDERED: DILTIAZEM 25 MG/5 ML VIAL IVP ONE (02:40)
--- NOTE | 2019-02-09 02:50 | NUR ---
PT RESTING IN BED COMFORTABLY WITH AT BEDSIDE. VSS. WILL CONTINUE TO MONITOR.
[2019-02-09] MEDS ORDERED: FUROSEMIDE 40 MG/4 ML VIAL IVP ONE (03:10)
--- NOTE | 2019-02-09 03:21 | NUR ---
PT AMBULATED TO RESTROOM
--- NOTE | 2019-02-09 03:36 | NUR ---
RT AT BEDSIDE FOR SECOND BREATHING TX
--- NOTE | 2019-02-09 03:50 | NUR ---
PT AMBULATED TO RESTROOM
--- NOTE | 2019-02-09 03:55 | NUR ---
PT CONTINUES TO REMOVE SIMPLE FACE MASK AND NASAL CANNULA "BECAUSE IT BOTHERS ME"
--- NOTE | 2019-02-09 05:23 | NUR ---
PT RESTING IN BED COMFORTABLY. WILL CONTINUE TO MONITOR.
[2019-02-09] MEDS ORDERED: NACL 0.9% 1,000 ML IV SCH (06:44)
[2019-02-09] MEDS ORDERED: ONDANSETRON 4 MG/2 ML VIAL IVP PRN (06:45)
[2019-02-09] MEDS ORDERED: ACETAMINOPHEN 325 MG TAB PO PRN (06:45)
--- NOTE | 2019-02-09 07:25 | NUR ---
Patient will be admitted to care of Dr. Guerrero. Admited to tele. Will go to room 106a. Belongings list completed. Report to PROMISE Carreno.
--- NOTE | 2019-02-09 07:27 | NUR ---
Transfer of care and report given to PROMISE Carreno. VSS.
--- NOTE | 2019-02-09 07:48 | NUR ---
PT ARRIVED ON THE UNIT AT 0725 RECEIVED HAND OFF REPORT FROM ER NURSE AUDRA PT IS AWAKE IN BED PT APPEARS STABLE AND IN NO APPARENT DISTRESS. PERFORMED HEAD TO TOE ASSESSMENT. COLLECTED URINE SPECIMEN AND MRSA NARES.
[2019-02-09 07:58] LABS: PROTHROMBIN TIME 9.9 secs (10.8-13.4)
[2019-02-09 08:17] VITALS: BP 150/90
--- NOTE | 2019-02-09 08:28 | NUR ---
PATIENT HAS BEEN SCREENED AND CATEGORIZED MODERATE NUTRITION RISK. PATIENT WILL BE SEEN WITHIN 3-5 DAYS OF ADMISSION. 02/11/19[address]
[2019-02-09 08:39] LABS: CHOL/HDL RATIO 2.9 (1-4.5); FREE T4 (FREE THYROXINE) 1.1 ng/dL (0.76-1.46); PHOSPHORUS 4.5 mg/dL (2.5-4.9); THYROID STIMULATING HORMONE 2.95 uIU/mL (0.34-3.74)
[2019-02-09] MEDS: FAMOTIDINE 20 MG TAB PO SCH (09:44)
[2019-02-09] MEDS: DOCUSATE SODIUM 100 MG GELCAP PO SCH ×2 (09:44→21:31)
[2019-02-09] MEDS: HYDROcodone/APAP 7.5/325 MG 1 TAB PO PRN (09:45)
[2019-02-09 09:46] LABS: APPEARANCE,URINE CLEAR (CLEAR); BILIRUBIN,URINE NEGATIVE (NEGATIVE); BLOOD, URINE NEGATIVE (NEGATIVE); COLOR,URINE YELLOW (YELLOW); LEUKOCYTE ESTERASE ,URINE NEGATIVE (NEGATIVE); NITRITE, URINE NEGATIVE (NEGATIVE); PH,URINE 5.5 (5.0-9.0); UGLUCOSE NEGATIVE (NEGATIVE)
--- NOTE | 2019-02-09 09:46 | NUR ---
FREQUENT ROUNDING ON PT PT APPEARS STABLE AND IN NO APPARENT DISTRESS. ALL SAFETY MEASURES ARE IN PLACE AND WILL CONTINUE TO MONITOR
[2019-02-09] MEDS ORDERED: ALBUTEROL SULFATE/IPRATROPIU 3 ML SOL IH PRN (10:25)
[2019-02-09 10:31] LABS: BARBITURATE, URINE NEG. ng/ml (NEG <=200); BENZODIAZEPINE, URINE NEG. ng/mL (NEG <=200); CANNABINOID, URINE NEG. ng/mL (NEG <=50); COCAINE, URINE NEG. ng/mL (NEG <=300); OPIATE, URINE NEG. ng/mL (NEG <=2000); PHENCYCLIDINE SCREEN,URINE NEG. ng/mL (NEG <=25)
[2019-02-09] MEDS ORDERED: methylPREDNISolone SS 125 MG/2 ML VIAL IVP SCH (10:47)
[2019-02-09] MEDS: AZITHROMYCIN 250 MG TAB PO SCH (12:03)
[2019-02-09 12:05] VITALS: BP 125/73
--- NOTE | 2019-02-09 12:39 | NUR ---
FREQUENT ROUNDING ON PT PT APPEARS STABLE AND IN NO APPARENT DISTRESS. ALL SAFETY MEASURES ARE IN PLACE.
[2019-02-09] MEDS: methylPREDNISolone SS 125 MG/2 ML VIAL IVP SCH ×2 (13:00→21:34)
[2019-02-09] MEDS: ALBUTEROL SULFATE/IPRATROPIU 3 ML SOL IH SCH ×2 (14:37→18:42)
--- NOTE | 2019-02-09 14:54 | NUR ---
HELD SOLUMEDROL DOSE ALREADY GAVE DOSE AT 1300 DUPLICATE ORDER
--- NOTE | 2019-02-09 15:34 | NUR ---
FREQUENT ROUNDING ON PT PT APPEARS STABLE AND IN NO APPARENT DISTRESS.
[2019-02-09] MEDS ORDERED: RIVAROXABAN 10 MG TAB PO SCH (16:30)
[2019-02-09 16:55] VITALS: BP 128/86
--- NOTE | 2019-02-09 17:36 | NUR ---
FREQUENT ROUNDING ON PT PT APPEARS STABLE AND IN NO APPARENT DISTRESS. ALL SAFETY MEASURES ARE IN PLACE WILL CONTINUE TO MONITOR.
--- NOTE | 2019-02-09 19:10 | NUR ---
RECEIVED REPORT AT BEDSIDE FOR CONTINUITY OF CARE, PT IN STABLE CONDITION.
--- NOTE | 2019-02-09 19:10 | NUR ---
ENDORSED PT TO PM RN PT AWAKE IN BED PT APPEARS STABLE AND IN NO APPARENT DISTRESS. ALL SAFETY MEASURES ARE IN PLACE,.
[2019-02-09 20:00] VITALS: BP 105/75
--- NOTE | 2019-02-09 20:00 | NUR ---
PT IN LOW BED WITH SIDE RAILS UP X2. PT IS AOX3 WITH NO S/S OF PAIN OR DISTRESS NOTED. V/S FOLLOWS T 97.7 P 60 R 18 B/P 121/76 02 92% ON ROOM AIR. PT IS SALINE LOCKED , NO C/O PAIN OR DISTRESS NOTED AL REQUESTED NEEDS ATTENDED.
--- NOTE | 2019-02-09 20:30 | NUR ---
PT REQUESTING NICOTINE PATCH , SPOKE WITH MD GIRON WHO ORDERED THE NICOTINE PATCH.
--- NOTE | 2019-02-09 21:30 | NUR ---
PT RECEIVED ORDERED NICOTINE PATCH, SOLUMEDROL AND COLACE, MEDICATION EDUCATION PROVIDED TO PT.
[2019-02-09] MEDS: NICOTINE TRANSD SYS 14 MG/24 HR PATCH TD SCH (21:36)
--- NOTE | 2019-02-09 21:50 | NUR ---
PT TAKEN DOWN BY W/C FOR CT OF ABD AND PELVIS.
--- NOTE | 2019-02-09 22:05 | NUR ---
PT RETURNED FOR CT SCAN AND IS IN LOW BED NO C/O VOICED. SNACK PROVIDED REQUESTED.
[2019-02-10] VITALS: BP 121/76
--- NOTE | 2019-02-10 00:30 | NUR ---
PT IN BED IV SITE NOTED LEAKING AND PT SAID IT WAS PAINFUL. SITE REMOVED, NEW IV SITE PROVIDED ON R WRIST 22G AND FLUSHED PATENT. PT IS JAIMEE LOCKED AT THIS TIME. PT DENIES PAIN AND V/S FOLLOWS T 97.7 P 60 R 18 B/P 121/76 02 92% ON ROOM AIR. BED LOW SIDE RAILS UP X2 AND CALL BERRY IN REACH.
--- NOTE | 2019-02-10 02:00 | NUR ---
PT IN BED SLEEPING NO S/S OF PAIN OR DISTRESS NOTED.
[2019-02-10 04:00] VITALS: BP 112/84
--- NOTE | 2019-02-10 06:07 | NUR ---
BLOOD DRAWS DONE AT BEDSIDE PT IN BED NO S/S OF PAIN OR DISTRESS NOTED.
--- NOTE | 2019-02-10 07:20 | NUR ---
PT RECEIVED FROM NIGHT RNCECE. PT SLEEPING IN BED, AROUSAL TO VERBAL COMMAND. 22 G IV TO R WRIST SALINE LOCK. PT SHOWS NO SIGNS OF ACUTE DISTRESS AT THIS TIME. WILL CONTINUE TO ASSESS FOR CHANGES IN CONDITION.
[2019-02-10 08:00] VITALS: BP 112/74
[2019-02-10 08:05] LABS: HEMOGLOBIN 13.2 g/dL (12.0-18.0); MEAN CORPUSCULAR HEMOGLOBIN 26 pg (27-31); MEAN CORPUSCULAR HGB CONC 32 g/dL (33-37); MEAN CORPUSCULAR VOLUME 79.5 fL (80-94); PLATELET COUNT (AUTO) 328 K/uL (140-450); RED BLOOD CELL COUNT(AUTO) 5.16 MIL/uL (4.20-6.10); RED CELL DISTRIBUTION WIDTH 17.9 % (11.6-13.7); WHITE BLOOD COUNT (AUTO) 14.8 K/uL (4.8-10.8)
[2019-02-10] MEDS: DIGOXIN 0.125 MG TAB PO SCH (08:12)
[2019-02-10] MEDS: DOCUSATE SODIUM 100 MG GELCAP PO SCH ×2 (08:12→20:05)
[2019-02-10] MEDS: FAMOTIDINE 20 MG TAB PO SCH (08:13)
[2019-02-10] MEDS: FUROSEMIDE 20 MG TAB PO SCH (08:13)
[2019-02-10] MEDS: LISINOPRIL 5 MG TAB PO SCH (08:13)
[2019-02-10] MEDS: NICOTINE TRANSD SYS 14 MG/24 HR PATCH TD SCH (08:44)
[2019-02-10] MEDS: ALBUTEROL SULFATE/IPRATROPIU 3 ML SOL IH SCH ×3 (08:49→19:38)
[2019-02-10] MEDS ORDERED: ECOTRIN 81 MG TABEC PO SCH (09:00)
--- NOTE | 2019-02-10 09:30 | NUR ---
PT IN BED AAOX4. NO SIGNS OF ACUTE DISTRESS AT THIS TIME. WILL CONTINUE TO ASSESS FOR CHANGES IN CONDITION.
[2019-02-10 09:38] LABS: LYMPHOCYTES % (MANUAL) 6 % (20-46)
[2019-02-10 10:01] LABS: ANION GAP 13.8 (8-16); CARBON DIOXIDE 25.9 mmol/L (21-32); CREATININE 1.1 mg/dL (0.7-1.3); POTASSIUM 3.7 mmol/L (3.5-5.1)
[2019-02-10 10:57] LABS: MAGNESIUM 1.8 mg/dL (1.8-2.4); PHOSPHORUS 4.6 mg/dL (2.5-4.9)
--- NOTE | 2019-02-10 11:11 | NUR ---
DR MURRAY CALLED TO ASK IF AZITHROMYCIN WAS OK TO ADMINISTER AFTER PT HAD 5-SEC V-TACH AT 0937. STATED IT WAS FINE BECAUSE MED CAN CAUSE Q-T PROLONGATION.
[2019-02-10] MEDS: AZITHROMYCIN 250 MG TAB PO SCH (11:17)
[2019-02-10 11:58] VITALS: BP 106/64
--- NOTE | 2019-02-10 12:19 | NUR ---
PT IN BED AAOX4. PT DENIES PAIN. NO SIGNS OF ACUTE DISTRESS AT THIS TIME. WILL CONTINUE TO ASSESS FOR CHANGES IN CONDITION.
[2019-02-10] MEDS: methylPREDNISolone SS 125 MG/2 ML VIAL IVP SCH ×2 (13:24→20:05)
--- NOTE | 2019-02-10 13:36 | NUR ---
PT RECEIVED ORDERED MEDS. AAOX4. PT RECEIVED TEACHING. PT SHOWS NO SIGNS OF ACUTE DISTRESS. WILL CONTINUE TO MONITOR FOR CHANGES IN CONDITION.
--- NOTE | 2019-02-10 14:59 | NUR ---
PT IN BED SLEEPING. NO SIGNS OF ACUTE DISTRESS AT THIS TIME. WILL CONTINUE TO ASSESS FOR CHANGES IN CONDITION.
[2019-02-10 16:02] VITALS: BP 117/63
--- NOTE | 2019-02-10 17:10 | NUR ---
PT IN BED WATCHING TV, AAOX4. PT SHOWS NO SIGNS OF ACUTE DISTRESS AT THIS TIME. WILL CONTINUE TO ASSESS FOR CHANGES IN CONDITION.
--- NOTE | 2019-02-10 18:13 | NUR ---
PT IN BED WATCHING TV, AAOX4. BREATHING EVEN AND UNLABORED. PT SHOWS NO SIGNS OF ACUTE DISTRESS AT THIS TIME. WILL CONTINUE TO ASSESS FOR CHANGES IN CONDITION.
--- NOTE | 2019-02-10 19:05 | NUR ---
PT ENDORSED TO NIGHT RNPREETI. PT IN BED, AAOX4. BREATHING EVEN AND UNLABORED. 22G IV TO R WRIST SALINE LOCK. VISITOR AT BEDSIDE. PT SHOWS NO SIGNS OF ACUTE DISTRESS AT THIS TIME.
--- NOTE | 2019-02-10 19:10 | NUR ---
RECEIVED PT ON BED WATCHING TV, AAOX4, ABLE TO MAKE NEEDS KNOWN, VITAL SIGNS TAKEN, UNCONTROLLED A-FIB/A-FLUTTER ON TELE, DENIES ANY PAIN, NO SOB NOTED, PLAN OF CARE DISCUSSED, SAFETY MEASURES IN PLACE, CALL LIGHT WITHIN REACH.
[2019-02-10 20:00] VITALS: BP 130/79
--- NOTE | 2019-02-10 20:35 | NUR ---
DUE MEDS GIVEN WITH EDUCATION PROVIDED, DR CAM HERE TO SEE PT, WITH NEW ORDER FOR SURGERY TOMORROW, INSTRUCTED NPO AFTER MIDNIGHT, VERBALIZED UNDERSTANDING.
[2019-02-10] MEDS: HYDROcodone/APAP 7.5/325 MG 1 TAB PO PRN (21:09)
--- NOTE | 2019-02-10 21:30 | NUR ---
PT HR-150-160'S ON THE TELEMETRY, SHOWING A-FLUTTER, PT SLEEPING, EASILY AROUSABLE, DENIES PAIN AND NO SOB NOTED, RADIAL PULSE PALPATED WITH 80-90 BPM, BP-118/58, SAT-95%, DR GRAY MADE AWARE AND CHECKED THE PT, WITH ORDER TO DO EKG, MONITORED PT CLOSELY,
[2019-02-11] VITALS: BP 124/61
--- NOTE | 2019-02-11 | NUR ---
PT SLEEPING, EASILY AROUSABLE, VITAL SIGNS TAKEN, BP STABLE, AFLUTTER ON TELE, ASYMPTOMATIC, CONTINUE TO MONITOR CLOSELY.
[2019-02-11 04:20] VITALS: BP 130/77
[2019-02-11] MEDS ORDERED: NACL 0.9% 250 ML IV ONE (04:30)
--- NOTE | 2019-02-11 04:30 | NUR ---
PT SLEEPING, EASILY AROUSABLE, VITAL SIGNS TAKEN, VARIABLE A-FLUTTER ON TELE, ASYMPTOMATIC, DENIES ANY PAIN, NO SOB NOTED, EKG DONE BY RT VILLAVICENCIO, RESULT RELAYED TO DR GIRON, WITH NEW ORDER, NS 250ML BOLUS ADMINISTERED ORDERED, MONITORED CLOSELY.
[2019-02-11] MEDS: methylPREDNISolone SS 125 MG/2 ML VIAL IVP SCH (04:43)
--- NOTE | 2019-02-11 06:10 | NUR ---
PT AWAKE, AMBULATED TO BR AND VOIDED FREELY, DENIES ANY PAIN, MAINTAINED ON NPO, FOR SURGERY TODAY AT 1100, MONITORED CLOSELY.
--- NOTE | 2019-02-11 07:15 | NUR ---
PT AWAKE, NO SIGNS OF DISTRESS, REPORT GIVEN TO RN IVELISSE FOR CONTINUITY OF CARE.
[2019-02-11] MEDS: ALBUTEROL SULFATE/IPRATROPIU 3 ML SOL IH SCH ×3 (07:19→20:07)
--- NOTE | 2019-02-11 07:30 | NUR ---
RECEIVED PT AAOX4. NO SOB NOTED, ON ROOM AIR WITH SATS AT 92%. NO C/O PAIN AT THIS TIME. PT ON VARIABLE A-FLUTTER ON THE MONITOR, PT DENIES ANY SYMPTOMS, WILL CONTINUE TO MONITOR. IV TO RT HNAD PATENT AND INTACT. CHEST DIMINISHED AIR ENTRY TO THE BASES, ABDOMEN SOFT, DRESSING TO RT ABD DRY AND INTACT. PT KEPT NPO FOR PLANNED SURGICAL PROCEDURE AT 1100 HRS. PT VERBALIZED UNDERSTANDING.
[2019-02-11 07:41] LABS: HEMATOCRIT 38.4 % (36-52); HEMOGLOBIN 12.3 g/dL (12.0-18.0); LYMPHOCYTES # (AUTO) 0.8 K/uL (2.0-11.5); LYMPHOCYTES % (AUTO) 4.8 % (20.5-51.1); MEAN CORPUSCULAR HEMOGLOBIN 25 pg (27-31); MEAN CORPUSCULAR HGB CONC 32 g/dL (33-37); MEAN CORPUSCULAR VOLUME 79.2 fL (80-94); MONOCYTES # (AUTO) 0.3 K/uL (0.8-1.0); MONOCYTES % (AUTO) 1.6 % (1.7-9.3); NEUTROPHILS # (AUTO) 15.9 K/uL (1.8-7.7); NEUTROPHILS % (AUTO) 93.6 % (42.2-75.2); PLATELET COUNT (AUTO) 310 K/uL (140-450); RED BLOOD CELL COUNT(AUTO) 4.85 MIL/uL (4.20-6.10); RED CELL DISTRIBUTION WIDTH 18.1 % (11.6-13.7)
[2019-02-11 07:42] LABS: ANION GAP 12.9 (8-16); CARBON DIOXIDE 26.2 mmol/L (21-32); CREATININE 1.2 mg/dL (0.7-1.3); POTASSIUM 4.1 mmol/L (3.5-5.1)
[2019-02-11 07:45] LABS: MAGNESIUM 1.9 mg/dL (1.8-2.4); PHOSPHORUS 4.2 mg/dL (2.5-4.9)
[2019-02-11 08:00] VITALS: BP_SYST 101; BP_SYST 187; BP_DIAS 53; BP_DIAS 98
[2019-02-11] MEDS: FAMOTIDINE 20 MG TAB PO SCH (08:50)
[2019-02-11] MEDS: NICOTINE TRANSD SYS 14 MG/24 HR PATCH TD SCH (08:50)
[2019-02-11] MEDS: DIGOXIN 0.125 MG TAB PO SCH (08:51)
[2019-02-11] MEDS: FUROSEMIDE 20 MG TAB PO SCH (09:00)
[2019-02-11] MEDS: LISINOPRIL 5 MG TAB PO SCH (09:00)
[2019-02-11] MEDS: DOCUSATE SODIUM 100 MG GELCAP PO SCH ×2 (09:00→20:24)
--- NOTE | 2019-02-11 09:37 | NUR ---
HEPARIN SQ NOT GIVEN, PT IS FOR SURGERY TODAY.
--- NOTE | 2019-02-11 09:45 | NUR ---
PT WHEELED TO SURGERY IN STABLE CONDITION. NPO MAINTAINED.
[2019-02-11] MEDS ORDERED: BUPIVACAINE-MPF/EPI 0.5% 30 ML VIAL INJ ONE (09:52)
[2019-02-11] MEDS ORDERED: ceFAZolin 1,000 MG VIAL ONE ×2 (09:52→10:43)
[2019-02-11] MEDS ORDERED: ESMOLOL 100 MG/10 ML VIAL IV ONE (09:58)
[2019-02-11] MEDS ORDERED: fentaNYL 0.05 MG/ML VIAL ONE (10:12)
[2019-02-11] MEDS ORDERED: ONDANSETRON 4 MG/2 ML VIAL IVP PRN (10:35)
[2019-02-11] MEDS ORDERED: HYDROmorphone 1 MG/ML AMP IVP PRN (10:35)
[2019-02-11] MEDS ORDERED: HYDROGEN PEROXIDE 3% 240 ML BTL TP ONE (10:56)
[2019-02-11] MEDS ORDERED: VANCOMYCIN PER PHARMACY MC PRN (11:45)
[2019-02-11 12:00] VITALS: BP 112/74
--- NOTE | 2019-02-11 12:00 | NUR ---
PT BACK FROM SURGERY IN STABLE CONDITION, S/P REMOVAL OF INFECTED MESH OF RT INGUINAL HERNIA AND I&D 02/11/19, DRESSING CHANGED IN SURGERY BY DR CAM.
[2019-02-11] MEDS: methylPREDNISolone SS 40 MG/ML VIAL IVP SCH ×2 (12:40→20:24)
[2019-02-11] MEDS: AZITHROMYCIN 250 MG TAB PO SCH (12:41)
[2019-02-11] MEDS: PIPERACILLIN/TAZOBACTAM 3.375 GM in DEXTROSE 5% 50 ML IV SCH ×3 (12:41→23:33)
--- NOTE | 2019-02-11 15:00 | NUR ---
PT VOIDED FREELY (POST OP) ON THE URINAL, MODERATE AMOUNT OF CLEAR URINE NOTED.
[2019-02-11] MEDS: VANCOMYCIN 1,000 MG in DEXTROSE 5% 250 ML IV SCH (15:09)
[2019-02-11] MEDS ORDERED: DIGOXIN 0.25 MG/ML AMP IV SCH (15:30)
[2019-02-11 16:00] VITALS: BP 116/88
--- NOTE | 2019-02-11 18:00 | NUR ---
PT EATING DINNER. NO SOB NOTED. NO COMPLAINTS MADE. SMALL AMOUNT OF STRIKE THROUGH BLOOD NOTED ON PT'S RT INGUINAL AREA WOUND DRESSING. WILL CONTINUE TO MONITOR.
--- NOTE | 2019-02-11 18:49 | NUR ---
PT SITTING ON THE BEDSIDE CHAIR TALKING TO . NO SOB NOTED. NO COMPLAINTS MADE. WILL ENDORSE TO NEXT SHIFT NURSE FOR CONTINUITY OF CARE.
--- NOTE | 2019-02-11 19:00 | NUR ---
RECEIVED BEDSIDE REPORT FROM DAY SHIFT NURSE. PATIENT IS AWAKE, ALERT, AND COOPERATIVE. RESPIRATION EVEN UNLABORED ON ROOM AIR. NO DISTRESS NOTED. SKIN IS WARM AND DRY. IV PATENT AND INTACT. DENIES PAIN. FAMILY AT BEDSIDE. PLAN OF CARE WAS DISCUSSED. ALL SAFETY MEASURES IN PLACE. BED IS AT LOW POSITION. CALL LIGHT WITHIN REACH. WILL CONTINUE TO MONITOR.
[2019-02-11 19:55] VITALS: BP 132/70
--- NOTE | 2019-02-11 20:00 | NUR ---
INITIAL ASSESSMENT DONE. VITALS WERE TAKEN. PATIENT IN STABLE CONDITION. NO DISTRESS NOTED. CALL LIGHT WITHIN REACH. WILL CONTINUE TO MONITOR.
--- NOTE | 2019-02-11 20:45 | NUR ---
ALL SCHEDULED MEDS WERE GIVEN PER ORDER. NO ASE NOTED. WILL CONTINUE TO MONITOR.
[2019-02-11] MEDS ORDERED: VANCOMYCIN 1GM/DEXT 5% PREMIX 200 ML IV SCH (21:00)
--- NOTE | 2019-02-11 21:54 | NUR ---
CHECKED PATIENT. PATIENT IN BED WATCHING TV RESPIRATION EVEN UNLABORED ON ROOM AIR. NO DISTRESS NOTED. CALL LIGHT WITHIN REACH. WILL CONTINUE TO MONITOR.
--- NOTE | 2019-02-11 23:56 | NUR ---
VITALS WERE TAKEN. PATIENT IN STABLE CONDITION. NO DISTRESS NOTED. CALL LIGHT WITHIN REACH. WILL CONTINUE TO MONITOR.
[2019-02-12] VITALS: BP 118/68
--- NOTE | 2019-02-12 01:30 | NUR ---
PATIENT WOKE UP AND REQUESTING FOR SANDWICHES AND JUICES. SANDWICH PROVIDED. WILL CONTINUE TO MONITOR.
--- NOTE | 2019-02-12 02:00 | NUR ---
CHECKED PATIENT. PATIENT SLEEPING RESPIRATION EVEN UNLABORED ON ROOM AIR. NO DISTRESS NOTED. CALL LIGHT WITHIN REACH. WILL CONTINUE TO MONITOR.
[2019-02-12 04:00] VITALS: BP 110/70
--- NOTE | 2019-02-12 04:00 | NUR ---
VITALS WERE TAKEN. PATIENT IN STABLE CONDITION. NO DISTRESS NOTED. CALL LIGHT WITHIN REACH. WILL CONTINUE TO MONITOR.
[2019-02-12] MEDS: methylPREDNISolone SS 40 MG/ML VIAL IVP SCH (04:26)
[2019-02-12] MEDS: PIPERACILLIN/TAZOBACTAM 3.375 GM in DEXTROSE 5% 50 ML IV SCH ×2 (05:04→11:05)
--- NOTE | 2019-02-12 07:08 | NUR ---
PT RECEIVED FROM NIGHT RNGABBY. PT IN BED AAOX4. NO SIGNS OF ACUTE DISTRESS AT THIS TIME. WILL CONTINUE TO ASSESS FOR CHANGES IN CONDITION.
--- NOTE | 2019-02-12 07:08 | NUR ---
ENDORSED PATIENT TO DAY SHIFT NURSE FOR CONTINUITY OF CARE. PATIENT IN STABLE CONDITION.
[2019-02-12 07:33] LABS: ANION GAP 12.7 (8-16); CARBON DIOXIDE 25.6 mmol/L (21-32); POTASSIUM 4.3 mmol/L (3.5-5.1)
[2019-02-12 07:34] LABS: CREATININE 1.2 mg/dL (0.7-1.3)
[2019-02-12] MEDS: VANCOMYCIN 1,000 MG in DEXTROSE 5% 250 ML IV SCH (07:37)
[2019-02-12 07:50] LABS: PHOSPHORUS 3.5 mg/dL (2.5-4.9)
[2019-02-12 08:00] VITALS: BP 116/66
[2019-02-12] MEDS: ALBUTEROL SULFATE/IPRATROPIU 3 ML SOL IH SCH ×2 (08:47→13:28)
[2019-02-12] MEDS: FAMOTIDINE 20 MG TAB PO SCH (09:14)
[2019-02-12] MEDS: DOCUSATE SODIUM 100 MG GELCAP PO SCH (09:14)
[2019-02-12] MEDS: LISINOPRIL 5 MG TAB PO SCH (09:14)
[2019-02-12] MEDS: FUROSEMIDE 20 MG TAB PO SCH (09:15)
[2019-02-12] MEDS: DIGOXIN 0.125 MG TAB PO SCH (09:23)
[2019-02-12] MEDS: NICOTINE TRANSD SYS 14 MG/24 HR PATCH TD SCH (09:23)
--- NOTE | 2019-02-12 09:42 | NUR ---
PT IN BED WATCHING TV. AAOX4. BREATHING EVEN AND UNLABORED. NO SIGNS OF ACUTE DISTRESS AT THIS TIME. WILL CONTINUE TO ASSESS FOR CHANGES IN CONDITION.
--- NOTE | 2019-02-12 10:10 | NUR ---
CONTACTED SHAJI EAST AT [phone] REGARDING ORDER FOR SNF PLACEMENT FOR PT AND CONTINUED ANTIBIOTIC, ABLE TO SPEAK TO LINNETTE. SHE PROVIDED ME WITH SARI DEAN AT [phone]. CONTACTED THE PROVIDED NUMBER, NO ANSWER. LEFT MESSAGE.
--- NOTE | 2019-02-12 10:53 | NUR ---
CONTACTED JERMAINE GUO AT [phone], NO ANSWER. LEFT MESSAGE.
[2019-02-12] MEDS: AZITHROMYCIN 250 MG TAB PO SCH (11:05)
[2019-02-12 12:00] VITALS: BP 106/61
--- NOTE | 2019-02-12 12:00 | NUR ---
PT IN BED WATCHING TV. NO SIGNS OF ACUTE DISTRESS AT THIS TIME. WILL CONTINUE TO ASSESS FOR CHANGES IN CONDITION
[2019-02-12 12:28] LABS: BASOPHILS % (AUTO) 0.1 % (0.0-2.0); HEMOGLOBIN 13.5 g/dL (12.0-18.0); LYMPHOCYTES # (AUTO) 0.8 K/uL (2.0-11.5); LYMPHOCYTES % (AUTO) 5.6 % (20.5-51.1); MEAN CORPUSCULAR HEMOGLOBIN 26 pg (27-31); MEAN CORPUSCULAR HGB CONC 32 g/dL (33-37); MEAN CORPUSCULAR VOLUME 79.7 fL (80-94); MONOCYTES # (AUTO) 0.6 K/uL (0.8-1.0); MONOCYTES % (AUTO) 3.7 % (1.7-9.3); NEUTROPHILS # (AUTO) 13.6 K/uL (1.8-7.7); NEUTROPHILS % (AUTO) 90.6 % (42.2-75.2); PLATELET COUNT (AUTO) 322 K/uL (140-450); RED BLOOD CELL COUNT(AUTO) 5.27 MIL/uL (4.20-6.10); RED CELL DISTRIBUTION WIDTH 18.1 % (11.6-13.7); WHITE BLOOD COUNT (AUTO) 15.1 K/uL (4.8-10.8)
[2019-02-12] MEDS ORDERED: methylPREDNISolone SS 40 MG/ML VIAL IVP SCH (13:00)
--- NOTE | 2019-02-12 14:00 | NUR ---
PT IN BED SLEEPING. AWOKE TO VERBAL STIMULI. NO SIGNS OF ACUTE DISTRESS. BREATHING EVEN AND UNLABORED. WILL CONTINUE TO ASSESS FOR CHANGES IN CONDITION.
--- NOTE | 2019-02-12 14:10 | NUR ---
RECEIVED A CALL FROM [facility], PROVIDED ME WITH QUIN DEAN NUMBER AT [phone]. CONTACTED THE PROVIDED NUMBER, ABLE TO SPEAK TO QUIN, SHE PROVIDED ME WITH FAX NUMBER [phone] TO SEND ORDER AND CLINICALS. INFORMATION NEEDED SENT TO THE PROVIDED FAX NUMBER. JERMAINE WILL FOLLOW UP.
--- NOTE | 2019-02-12 15:36 | NUR ---
RECEIVED A CALL FROM SHAJI SPOKE WITH QUIN PT IS GOING TO [facility] ROOM 100-2 # TO GIVE REPORT [phone] PER QUIN ARRANGED TRANSPORT WITH [facility] TIME [id number]
--- NOTE | 2019-02-12 15:40 | NUR ---
02/12/19 RD INITIAL ASSESSMENT COMPLETED PLEASE REFER TO NUTRITION ASSESSMENT UNDER CARE ACTIVITY FOR ESTIMATED NUTRITIONAL NEEDS. 1. CONTINUE CARDIAC DIET TOLERATED 2. RD PROVIDED NUTRITION EDUCATION HANDOUT FOR CHF 3. RD TO FOLLOW-UP 5-7 DAYS, LOW RISK MARIA DEL [address]
[2019-02-12] MEDS ORDERED: ACET-9529 PO (15:50)
[2019-02-12] MEDS ORDERED: METO-251 PO (15:50)
[2019-02-12 16:00] VITALS: BP_SYST 125; BP_SYST 130; BP_DIAS 64; BP_DIAS 78
--- NOTE | 2019-02-12 16:43 | NUR ---
EXTRUSION TECHNICIAN NOTIFIED THAT PT HR WAS ELEVATED. UPON ENTERING ROOM, PT WAS WALKING BACK FROM RESTROOM. PT ASYMPTOMATIC. PT HR RETURNED TO BASELINE AFTER SITTING. WILL CONTINUE TO ASSESS FOR CHANGES IN CONDITION.
--- NOTE | 2019-02-12 17:00 | NUR ---
SURGICAL INCISION PHOTOGRAPHED FOR DISCHARGE. PT HAS 10 CM INCISION TO R LOWER ABDOMEN, WELL APPROXIMATED, 11 TESSA. NO DRAINAGE OBSERVED. DRESSING INTACT WITH SEROSANGUINEOUS DRAINAGE. PT DENIED PAIN. NO REDNESS.
--- NOTE | 2019-02-12 17:20 | NUR ---
[facility] CALLED AND REPORT GIVEN TO
--- NOTE | 2019-02-12 17:41 | NUR ---
PT STATED HE DID NOT WANT TO GO TO [facility]. HE STATED HE JUST WANTED TO GO HOME. PT RECEIVED EDUCATION ABOUT LEAVING AMA AND HOW NOT CONTINUING TREATMENT COULD RESULT IN WORSENING INFECTION, UP TO AND INCLUDING . PT STATED "I DON'T LIKE THE WAY YOU DO BUSINESS HERE. I'M GOING HOME." PT SIGNED AMA FORM. DR. MURRAY NOTIFIED VIA PHONE. PT 22 G IV REMOVED FROM L HAND, CATHETER INTACT. PT TOOK ALL BELONGINGS WITH HIM. T-SHIRT WAS PROVIDED FOR PATIENT BECAUSE HE DID NOT HAVE ONE. PT STATED HE WILL WAIT FOR IN LOBBY.
--- NOTE | 2019-02-12 17:51 | NUR ---
CALLED [facility] AND CANCELLED PERMASTONE MECHANIC. NOTIFIED [facility] THAT PATIENT DECIDED TO GO AMA.
--- NOTE | 2019-02-12 18:03 | NUR ---
REQUESTED, DR. PERSON WAS NOTIFIED WHEN PT LEFT UNIT.
== END 2019-02-12 17:57 | disposition left against medical advice (07) | DRG 901 ==
LOC: MED 01:18 → MTU 06:48 → UNDODEPER 07:02
PROVIDERS: ADMIT General Practice; ATTEND General Practice
PROC: 0JBC0ZZ Excision of Pelvic Region Subcutaneous Tissue and Fascia, Open Approach (ICD-10-PCS; 2019-02-11)
PROC: 0WPF0JZ Removal of Synthetic Substitute from Abdominal Wall, Open Approach (ICD-10-PCS; 2019-02-11)
PROC: 0Y950ZZ Drainage of Right Inguinal Region, Open Approach (ICD-10-PCS; principal; 2019-02-11 11:00)
DX: T85.79XA Infection and inflammatory reaction due to other internal prosthetic devices, implants and grafts, initial encounter (principal); I50.43 Acute on chronic combined systolic (congestive) and diastolic (congestive) heart failure; J44.1 Chronic obstructive pulmonary disease with (acute) exacerbation; L02.214 Cutaneous abscess of groin; I42.9 Cardiomyopathy, unspecified; I48.91 Unspecified atrial fibrillation; K44.9 Diaphragmatic hernia without obstruction or gangrene; Z53.21 Procedure and treatment not carried out due to patient leaving prior to being seen by health care provider; F17.200 Nicotine dependence, unspecified, uncomplicated; I11.0 Hypertensive heart disease with heart failure; F15.10 Other stimulant abuse, uncomplicated; Z59.0 Homelessness; Z79.82 Long term (current) use of aspirin; Z91.14 Patient's other noncompliance with medication regimen; F17.210 Nicotine dependence, cigarettes, uncomplicated; Z91.19 Patient's noncompliance with other medical treatment and regimen; Y83.8 Other surgical procedures as the cause of abnormal reaction of the patient, or of later complication, without mention of misadventure at the time of the procedure; Y92.89 Other specified places as the place of occurrence of the external cause
CPT/HCPCS: 36415; 71045; 72192; 80048; 80053; 80162; 80305; 81003; 82150; 83036; 83605; 83690; 83735; 83880; 84100; 84439; 84443; 84484; 85025; 85610; 85730; 87040; 87070; 87075; 87081; 87186; 87205; 93005; 94640; 96372; 96374; 96375; 97110; 97116; 97161-GP; 97530; 99285; J0690; J1160; J1644; J1940; J2543; J2920; J2930; J3010; J3370; J3490; J7030; J7060; J7620; Q0092

== ENCOUNTER 2019-04-21 05:41 | Inpatient (IN) | payer OTHER ==
[~2019-04-21] VITALS: Ht 172.7 cm; Wt 77.1 kg
[~2019-04-21 05:41] MED LIST changes: +ACET-9529 PO; +METO-251 PO
--- NOTE | 2019-04-21 05:44 | NUR ---
AMBULATED TO ER BED 3
[2019-04-21 05:55] VITALS: BP 138/106
--- NOTE | 2019-04-21 05:55 | NUR ---
68 Y/O MALE BIB C/O SHORTNESS OF BREATH X 3 DAYS. RR 32 ON RA. 95% SPO2. BREATHING IS LABORED AND TACHYPNEIC. LUNG SOUNDS CLEAR/DIMINSHED ON BILATERAL LUNG BASES (ANTERIORALLY/POSTERIORALLY). SKIN IS DRY AND INTACT. DENIES N/V/D/FEVER/CHILLS/CHEST PAIN. PAIN IS A 0/10. ERMD MADE AWARE OF STATUS. SIDE RAILSX1. PLACED ON MONITOR. WILL CONTINUE TO MONITOR. PMH:HTN; ATRIAL FIBRILLATION; SMOKER 1 PACK FOR 43 YEARS RX: LISINOPRIL; FUROSEMIDE; DIGOXIN; ASPIRIN; POTASSIUN NKDA
[2019-04-21] MEDS ORDERED: DILTIAZEM 25 MG/5 ML VIAL IVP ONE (06:05)
--- NOTE | 2019-04-21 06:15 | NUR ---
PATIENT 20RR; SPO2 IS 98 ON 2L NASAL CANNULA. WILL CONTINUE TO MONITOR
[2019-04-21 06:27] LABS: BASOPHILS % (AUTO) 0.7 % (0.0-2.0); EOSINOPHILS # (AUTO) 0.1 K/uL (0-0.4); EOSINOPHILS % (AUTO) 1.2 % (0.0-4.0); HEMATOCRIT 38.1 % (36-52); HEMOGLOBIN 12.2 g/dL (12.0-18.0); LYMPHOCYTES # (AUTO) 1.7 K/uL (2.0-11.5); MEAN CORPUSCULAR HEMOGLOBIN 26 pg (27-31); MEAN CORPUSCULAR HGB CONC 32 g/dL (33-37); MEAN CORPUSCULAR VOLUME 80.1 fL (80-94); MONOCYTES # (AUTO) 0.6 K/uL (0.8-1.0); MONOCYTES % (AUTO) 8.4 % (1.7-9.3); NEUTROPHILS # (AUTO) 4.2 K/uL (1.8-7.7); NEUTROPHILS % (AUTO) 63.7 % (42.2-75.2); PLATELET COUNT (AUTO) 357 K/uL (140-450); RED BLOOD CELL COUNT(AUTO) 4.75 MIL/uL (4.20-6.10); RED CELL DISTRIBUTION WIDTH 18.7 % (11.6-13.7); WHITE BLOOD COUNT (AUTO) 6.6 K/uL (4.8-10.8)
--- NOTE | 2019-04-21 06:30 | NUR ---
VITAL SIGNS STABLE. PT IS SLEEPING AT THIS TIME; BREATHING UNLABORED AND SYMMETRICAL. 99% ON 2L. WILL CONTINUE TO MONITOR.
--- NOTE | 2019-04-21 06:47 | NUR ---
PATIENT'S VSS. BREATHING IS UNLABORED AT THIS TIME: 22 RR; SPO2 96% ON 2L NASAL CANNULA. AT BEDSIDE. WILL CONTINUE TO MONITOR.
[2019-04-21 06:50] LABS: ALBUMIN 2.9 g/dL (3.4-5.0); ANION GAP 16.5 (8-16); CARBON DIOXIDE 23.6 mmol/L (21-32); POTASSIUM 4.1 mmol/L (3.5-5.1); TOTAL BILIRUBIN 2.2 mg/dL (0.0-1.0)
[2019-04-21] MEDS ORDERED: FUROSEMIDE 40 MG/4 ML VIAL IVP ONE (06:55)
[2019-04-21] MEDS ORDERED: NITROGLYCERIN 2% 1 GM PKT TP ONE (06:55)
--- NOTE | 2019-04-21 06:55 | NUR ---
PATIENT'S BREATHING IS UNLABORED AND SYMMETRICAL. PATIENT IS ASLEEP AT THIS TIME. VSS. AT BEDSIDE. WILL CONTINUE TO MONITOR.
--- NOTE | 2019-04-21 07:10 | NUR ---
RECEIVED REPORT FROM PROMISE BLAIR FOR CONTINUATION OF CARE
--- NOTE | 2019-04-21 07:17 | NUR ---
PROVIDED PT WITH URINAL
--- NOTE | 2019-04-21 07:17 | NUR ---
DR. LAI AT BEDSIDE EVALUATING PATIENT.
--- NOTE | 2019-04-21 07:18 | NUR ---
Pt report given to PROMISE RESTREPO. Transfer of care at this time.
--- NOTE | 2019-04-21 07:20 | NUR ---
URINE COLLECTED AND WALKED TO LAB
[2019-04-21] MEDS ORDERED: hePARIN / DEXT 5% PREMIX 250 ML IV ONE (07:35)
[2019-04-21] MEDS ORDERED: HEPARIN PER PHARMACY MC PRN (07:35)
--- NOTE | 2019-04-21 07:47 | NUR ---
Dr. Alicai is re-evaluating the patient at bedside.
--- NOTE | 2019-04-21 07:49 | NUR ---
JIM DONE BY DR. LAI, (-) FOR BLOOD IN STOOL
[2019-04-21] MEDS ORDERED: DIGOXIN 0.25 MG/ML AMP IV ONE (08:00)
[2019-04-21 08:17] LABS: BILIRUBIN,URINE 1+ (NEGATIVE); BLOOD, URINE TRACE-I (NEGATIVE); COLOR,URINE YELLOW (YELLOW); LEUKOCYTE ESTERASE ,URINE 1+ (NEGATIVE); NITRITE, URINE NEGATIVE (NEGATIVE); PH,URINE 5.5 (5.0-9.0); UGLUCOSE NEGATIVE (NEGATIVE)
--- NOTE | 2019-04-21 08:30 | NUR ---
pt eating in bed, no new needs at this time
[2019-04-21 08:31] LABS: APPEARANCE,URINE HAZY (CLEAR); RBC,URINE 0-5 /HPF (0-5)
[2019-04-21 08:39] LABS: CALCIUM OXALATE CRYSTALS,UR 0-10 /HPF (None Seen)
[2019-04-21] MEDS ORDERED: ACETAMINOPHEN 325 MG TAB PO PRN (09:00)
[2019-04-21] MEDS ORDERED: ONDANSETRON 4 MG/2 ML VIAL IVP PRN (09:00)
[2019-04-21] MEDS ORDERED: NACL 0.9% 1,000 ML IV SCH (09:00)
[2019-04-21] MEDS ORDERED: DOCUSATE SODIUM 100 MG GELCAP PO SCH (09:00)
--- NOTE | 2019-04-21 09:10 | NUR ---
Patient will be admitted to care of DR. DIXON. Admited to TELEMETRY. Will go to room 107-B. Belongings list completed. Report to PROMISE TSAI.
[2019-04-21 09:15] VITALS: BP 132/91
[2019-04-21 09:26] LABS: FREE T4 (FREE THYROXINE) 1.33 ng/dL (0.76-1.46); MAGNESIUM 1.9 mg/dL (1.8-2.4); PHOSPHORUS 3.9 mg/dL (2.5-4.9); THYROID STIMULATING HORMONE 2.7 uIU/mL (0.34-3.74)
--- NOTE | 2019-04-21 10:35 | NUR ---
RECEIVED REPORT FROM ED NURSE KAYE. PT IS AAOX4, COOPERATIVE BUT SHOWING SIGNS OF ANGER. PT SKIN IS INTACT. PT ON 3L VIA N/C. PT AMBULATES WELL. PT ON HEPRIN DRIP PER PROTOCOL. EXPLAINED POC TO PT AND PT VERBALIZED UNDERSTANDING. ALL NEEDS MET. WILL ROUND FREQUENTLY ON PT. BED IN LOW POSITION, CALL LIGHT WITHIN REACH. Addendum: 04/21/19 at 1226 by Britt Mohan RN PT ADMITTED AT 0915.
--- NOTE | 2019-04-21 10:40 | NUR ---
PT LEFT AMA. RESIDENT AWARE AND SPOKE WITH PT ABOUT RISKS OF LEAVING AMA. PT VERBALIZED UNDERSTANDING BUT INSISTED ON LEAVING. IVS REMOVED WITH TIP INTACT. PRESSURE HELD ON IV SITES FOR 5MINS UNTIL BLEEDING STOPPED. EDUCATED PT ON WATCHING FOR BLEEDING AND TO BE CAREFUL WITH NOT CUTTING HIMSELF OR BRUSHING TEETH TOO HARD. ALSO EDUCATED PT ON SHAVING AND TO BE VERY CAREFUL. PT DECIDED TO WALK HOME. PT REFUSED MRSA SWAB TO BE DONE. PT LEFT IN STABLE CONDITION.
[2019-04-21] MEDS ORDERED: FUROSEMIDE 40 MG/4 ML VIAL IVP SCH (17:00)
[2019-04-22] MEDS ORDERED: LACTOBACILLUS RHAMNOSUS GG 1 EACH CAP PO SCH (09:00)
== END 2019-04-21 10:35 | disposition left against medical advice (07) | DRG 308 ==
LOC: MED 05:41 → MTU 08:31
PROVIDERS: ADMIT General Practice; ATTEND General Practice
DX: I48.91 Unspecified atrial fibrillation (principal); I50.43 Acute on chronic combined systolic (congestive) and diastolic (congestive) heart failure; N39.0 Urinary tract infection, site not specified; I11.0 Hypertensive heart disease with heart failure; J44.9 Chronic obstructive pulmonary disease, unspecified; Z53.29 Procedure and treatment not carried out because of patient's decision for other reasons; Z87.891 Personal history of nicotine dependence; Z91.14 Patient's other noncompliance with medication regimen
CPT/HCPCS: 36415; 36600; 71045; 80053; 80162; 81001; 82150; 82803; 83605; 83690; 83735; 83880; 84100; 84439; 84443; 84484; 85025; 85610; 85730; 87040; 87086; 93005; 96365; 96375; 99285; J0696; J1160; J1644; J1940; J3490; J7060; Q0092

== ENCOUNTER 2019-04-25 18:38 | Emergency (ER) | payer OTHER ==
[~2019-04-25] VITALS: Ht 172.7 cm; Wt 80.7 kg
[2019-04-25 18:38] VITALS: BP 161/119
--- NOTE | 2019-04-25 18:48 | NUR ---
Patient ambulated to bed 1 with family. RN evaluating patient at bedside.
--- NOTE | 2019-04-25 18:54 | NUR ---
Dr. Haskins is evaluating the patient at bedside.
--- NOTE | 2019-04-25 19:00 | NUR ---
PT BIB FAMILY C/O SOB X2 WEEKS. PT DENIES PAIN, COUGH, N/V/D, OR FEVER. RR 33, DEEP, LABORED, WHEEZES THROUGHOUT. PT COLOR WNL, CAP REFIL <3 SEC, CLUBBING PRESENT ON FINGERNAILS. ER MD NOTIFIED OF PT CONDITION. MEDHX:A-FIB, CHF RX:DENIES
[2019-04-25] MEDS ORDERED: DILTIAZEM 125 MG in DEXTROSE 5% 100 ML IV ONE (19:10)
[2019-04-25] MEDS ORDERED: DILTIAZEM 25 MG/5 ML VIAL IVP ONE (19:10)
[2019-04-25] MEDS ORDERED: APIXABAN 2.5 MG TAB PO ONE (19:10)
--- NOTE | 2019-04-25 19:15 | NUR ---
IV PLACED, LABS DRAWN AND SENT TO LAB
--- NOTE | 2019-04-25 19:15 | NUR ---
Pt report given to PROMISE HARTMANN. Transfer of care at this time.
[2019-04-25] MEDS ORDERED: DILTIAZEM 125 MG/25 ML VIAL IV ONE (19:17)
[2019-04-25 19:28] LABS: BASOPHILS % (AUTO) 0.5 % (0.0-2.0); EOSINOPHILS # (AUTO) 0.1 K/uL (0-0.4); EOSINOPHILS % (AUTO) 1.4 % (0.0-4.0); HEMATOCRIT 38.6 % (36-52); HEMOGLOBIN 12.3 g/dL (12.0-18.0); LYMPHOCYTES # (AUTO) 1.9 K/uL (2.0-11.5); LYMPHOCYTES % (AUTO) 25.3 % (20.5-51.1); MEAN CORPUSCULAR HEMOGLOBIN 25 pg (27-31); MEAN CORPUSCULAR HGB CONC 32 g/dL (33-37); MEAN CORPUSCULAR VOLUME 79.4 fL (80-94); MONOCYTES # (AUTO) 0.5 K/uL (0.8-1.0); MONOCYTES % (AUTO) 6.4 % (1.7-9.3); NEUTROPHILS # (AUTO) 4.9 K/uL (1.8-7.7); NEUTROPHILS % (AUTO) 66.4 % (42.2-75.2); PLATELET COUNT (AUTO) 380 K/uL (140-450); RED BLOOD CELL COUNT(AUTO) 4.86 MIL/uL (4.20-6.10); RED CELL DISTRIBUTION WIDTH 18.7 % (11.6-13.7); WHITE BLOOD COUNT (AUTO) 7.3 K/uL (4.8-10.8)
[2019-04-25 19:41] LABS: ANION GAP 15.6 (8-16); CARBON DIOXIDE 25.7 mmol/L (21-32); CREATININE 1.1 mg/dL (0.7-1.3); POTASSIUM 4.3 mmol/L (3.5-5.1)
[2019-04-25 19:47] LABS: TOTAL BILIRUBIN 1.7 mg/dL (0.0-1.0)
[2019-04-25] MEDS ORDERED: ASPIRIN 325 MG TAB PO ONE (20:05)
[2019-04-25 20:08] LABS: CREATINE KINASE MB 2.6 ng/mL (0-3.6)
[2019-04-25 20:10] LABS: CHOL/HDL RATIO 3.4 (1-4.5)
--- NOTE | 2019-04-25 20:56 | NUR ---
ORDERED ELIQUIS NOT AVAILABLE IN [facility]. DIRECTOR OF HUMAN RESOURCES GAYLE SPOKE WITH NEUROLOGIST YESSI, WAS TOLD THAT ELIQUIS IS NOT AN EMERGENT MEDICATION FOR ON-CALL PHARMACIST TO COME TO THE HOSPITAL AND CAN BE GIVEN IN THE MORNING. DIRECTOR OF HUMAN RESOURCES SPOKE WITH DR FRANKS WHO AGREED TO HOLD ORDER OF ELIQUIS AT THIS TIME.
--- NOTE | 2019-04-25 20:56 | NUR ---
Ordered Eliquis not administered. Med not available . Notified Integration Director. Junior Graphic Designer spoke with the pharmacist and was told that the need for the medication at this time is not urgent. Dr Haskins made aware
[2019-04-25] MEDS ORDERED: APIXABAN 2.5 MG TAB PO SCH (21:00)
--- NOTE | 2019-04-25 22:32 | NUR ---
SPOKE WITH DORIS FROM [facility] AND WAS TOLD THAT THEY ARE WORKING TO TRANSFER PATIENT TO [facility]. PER DORIS, DR MALONE HAS BEEN MADE AWARE OF THE INCREASED IN TROPONIN FROM 0.073-0.079
--- NOTE | 2019-04-25 23:33 | NUR ---
SPOKE TO MAJOR FROM [facility] AND GAVE PATIENT REPORT
[2019-04-26 00:05] VITALS: BP 124/88
--- NOTE | 2019-04-26 00:05 | NUR ---
Patient to be transferred to [facility]. Is being transferred due to A.FIB, NONSTEMI, INSURANCE REQUEST. Receiving facility has accepting physician and available space. ER physician has signed transfer form. Patient or responsible green party has agreed to transfer and signed form. Patient belongings inventoried and will be sent with patient. Copy of nursing notes, lab reports, EKG, Physicians Orders and X-rays to be sent with patient. Report was called by Zeke VIRGEN to Nishi VIRGEN at receiving facility. [facility] critical care transport at bedside to take pt at this time.
== END 2019-04-26 00:05 | disposition short-term general hospital (02) ==
LOC: MED 18:38
DX: I21.4 Non-ST elevation (NSTEMI) myocardial infarction (principal); I48.20 Chronic atrial fibrillation, unspecified; I11.0 Hypertensive heart disease with heart failure; I50.9 Heart failure, unspecified; F17.210 Nicotine dependence, cigarettes, uncomplicated; Z90.49 Acquired absence of other specified parts of digestive tract; Z71.6 Tobacco abuse counseling
CPT/HCPCS: 36415; 71045; 80053; 80061; 82550; 82553; 83880; 84484; 85025; 85379; 85610; 85730; 96365; 96366; 96375; 99284; J3490; J7060; Q0092; 93005; 99291

== ENCOUNTER 2020-10-13 00:25 | Inpatient (IN) | payer OTHER, SELFPAY ==
[~2020-10-13] VITALS: Ht 172.7 cm; Wt 76.7 kg
[2020-10-13 00:41] VITALS: BP 154/101
--- NOTE | 2020-10-13 00:48 | NUR ---
PT TAKEN TO BED 09 VIA W/C
--- NOTE | 2020-10-13 00:55 | NUR ---
RECEIVED IN BED 9 FROM TRIAGE WITH C/O ABDOMINAL PAIN AND SOB. NO SOB NOTED AT THIS TIME, O2 SAT = 100 % ON R/A. SPEACH IS CLEAR. PT IS VAGUE REGARDING LIVING SITUATION. IS UNKEMPT AND DISHEVELED WITH LACK OF HYGIENE AND IS PUNGENT. ATTACHED TO CM = A-FIB WITH OCCASIONAL PVC PMH : A-FIB NKDA
--- NOTE | 2020-10-13 01:05 | NUR ---
DR MCMAHON AT BEDSIDE FOR EXAM
[2020-10-13] MEDS ORDERED: NACL 0.9% 1,000 ML IV SCH ×2 (01:10→08:05)
--- NOTE | 2020-10-13 01:14 | NUR ---
Lab at bedside for blood draw.
[2020-10-13] MEDS ORDERED: cefTRIAXone 1,000 MG in DEXT 5% MINI-BAG PLUS 50 ML IV ONE (01:20)
--- NOTE | 2020-10-13 01:21 | NUR ---
EKG being performed by EMT at bedside.
[2020-10-13] MEDS ORDERED: cefTRIAXone 1,000 MG VIAL ONE (01:30)
[2020-10-13 01:35] LABS: BASOPHILS % (AUTO) 0.2 % (0.0-2.0); EOSINOPHILS % (AUTO) 0.1 % (0.0-4.0); HEMATOCRIT 47.1 % (36-52); HEMOGLOBIN 15.7 g/dL (12.0-18.0); LYMPHOCYTES # (AUTO) 1.4 K/uL (2.0-11.5); LYMPHOCYTES % (AUTO) 12.9 % (20.5-51.1); MEAN CORPUSCULAR HEMOGLOBIN 32 pg (27-31); MEAN CORPUSCULAR HGB CONC 33 g/dL (33-37); MEAN CORPUSCULAR VOLUME 95.8 fL (80-94); MONOCYTES # (AUTO) 0.7 K/uL (0.8-1.0); MONOCYTES % (AUTO) 5.9 % (1.7-9.3); NEUTROPHILS % (AUTO) 80.9 % (42.2-75.2); PLATELET COUNT (AUTO) 274 K/uL (140-450); RED BLOOD CELL COUNT(AUTO) 4.92 MIL/uL (4.20-6.10); RED CELL DISTRIBUTION WIDTH 13.1 % (11.6-13.7); WHITE BLOOD COUNT (AUTO) 11.1 K/uL (4.8-10.8)
[2020-10-13 01:39] LABS: APPEARANCE,URINE CLEAR (CLEAR); BILIRUBIN,URINE NEGATIVE (NEGATIVE); BLOOD, URINE TRACE-I (NEGATIVE); COLOR,URINE YELLOW (YELLOW); LEUKOCYTE ESTERASE ,URINE NEGATIVE (NEGATIVE); NITRITE, URINE POSITIVE (NEGATIVE); PH,URINE 6.5 (5.0-9.0); UGLUCOSE 3+ (NEGATIVE)
[2020-10-13 01:41] LABS: ALBUMIN 3.6 g/dL (3.4-5.0); ASPARTATE AMINOTRANSFERASE 28 U/L (15-37); CARBON DIOXIDE 25.9 mmol/L (21-32); CHLORIDE 105 mmol/L (98-107); CREATININE 1.3 mg/dL (0.6-1.3); GLUCOSE 206 mg/dL (74-106); SODIUM SERUM 143 mmol/L (136-145); UREA NITROGEN, BLOOD 22 mg/dL (7-18)
[2020-10-13 01:43] LABS: POTASSIUM 2.9 mmol/L (3.5-5.1)
[2020-10-13 01:51] LABS: RBC,URINE 0-5 /HPF (0-5)
[2020-10-13 01:52] LABS: YEAST,URINE None Seen /HPF (None Seen)
[2020-10-13] MEDS ORDERED: MORPHINE SULFATE 4 MG/ML SYR IVP ONE (01:55)
[2020-10-13] MEDS ORDERED: POTASSIUM CHL 20 MEQ/NACL 0.9% 1,000 ML IV ONE (01:55)
--- NOTE | 2020-10-13 01:55 | NUR ---
PT TRANSFERED TO CT VIA JAS
--- NOTE | 2020-10-13 02:20 | NUR ---
COVID KAM SWAB COLLECTED AND SENT TO LAB.
[2020-10-13] MEDS ORDERED: fentaNYL citrate 0.05 MG/ML VIAL IVP ONE (02:30)
--- NOTE | 2020-10-13 02:40 | NUR ---
HAS BEEN INCONTINENT OF LARGE [place] STOOL WHICH HAS DRIED. CLEANSED, LINENS CHANGED. CONSENT SIGNED FOR CT WITH CONTRAST
--- NOTE | 2020-10-13 03:15 | NUR ---
RETURNED FROM CT
--- NOTE | 2020-10-13 04:20 | NUR ---
REPEAT LACTIC ACID DRAWN
[2020-10-13] MEDS ORDERED: ENOXAPARIN 80 MG/0.8 ML SYR SUBQ ONE (05:30)
[2020-10-13 05:53] LABS: PROTHROMBIN TIME 11.1 secs (10.8-13.4)
--- NOTE | 2020-10-13 06:30 | NUR ---
RESTING COMFORTABLY, DOZING OFF AND ON, VOIDING QS
--- NOTE | 2020-10-13 07:00 | NUR ---
, JOHNNY MARVIN, PHONE # : [phone]
--- NOTE | 2020-10-13 07:12 | NUR ---
REPORT GIVEN. CARE ENDORSED TO PROMISE DHILLON
--- NOTE | 2020-10-13 07:59 | NUR ---
REPORT GIVEN TO PROMISE HONG. PT GOING TO ROOM 121-A.
[2020-10-13] MEDS ORDERED: DOCUSATE SODIUM 100 MG GELCAP PO PRN (08:05)
[2020-10-13] MEDS ORDERED: HYDROcodone/APAP 5/325 MG 1 TAB TAB PO PRN (08:05)
[2020-10-13] MEDS ORDERED: ONDANSETRON 4 MG/2 ML VIAL IVP PRN (08:05)
[2020-10-13] MEDS ORDERED: MORPHINE SULFATE 2 MG/ML SYR IVP PRN (08:05)
[2020-10-13] MEDS ORDERED: ACETAMINOPHEN 325 MG TAB PO PRN (08:05)
--- NOTE | 2020-10-13 08:05 | NUR ---
REC'D PT FROM ED PT A/Ox4, RA. FerrerFA 18G INFUSING POTASSIUM CHLORIDE AT 100ML/HR, PATENT, RORY LUNGS CLEAR, DIMINISHED. ABD SOFT, NON TENDER NO PERIPHERAL EDEMA NOTED. TELEMONITOR IN PLACE. PT IS UNKEMPT. COOPERATIVE. CALL LIGHT WITHIN REACH. ALL SAFETY MEASURES IN PLACE. BED LOWEST POSITION. VS TAKEN. WILL CONTINUE TO MONITOR
--- NOTE | 2020-10-13 08:10 | NUR ---
Patient will be admitted to care of DR GIRON. Admited to TELE. Will go to room 121A. Belongings list completed. Report to PROMISE HONG.
[2020-10-13 08:32] LABS: BASOPHILS % (AUTO) 0.4 % (0.0-2.0); HEMATOCRIT 45.2 % (36-52); HEMOGLOBIN 15.2 g/dL (12.0-18.0); LYMPHOCYTES # (AUTO) 1.3 K/uL (2.0-11.5); LYMPHOCYTES % (AUTO) 11.5 % (20.5-51.1); MEAN CORPUSCULAR HEMOGLOBIN 32 pg (27-31); MEAN CORPUSCULAR HGB CONC 34 g/dL (33-37); MEAN CORPUSCULAR VOLUME 95.3 fL (80-94); MONOCYTES # (AUTO) 0.5 K/uL (0.8-1.0); MONOCYTES % (AUTO) 4.8 % (1.7-9.3); NEUTROPHILS # (AUTO) 9.5 K/uL (1.8-7.7); NEUTROPHILS % (AUTO) 83.3 % (42.2-75.2); PLATELET COUNT (AUTO) 266 K/uL (140-450); RED BLOOD CELL COUNT(AUTO) 4.74 MIL/uL (4.20-6.10); WHITE BLOOD COUNT (AUTO) 11.4 K/uL (4.8-10.8)
[2020-10-13 08:47] LABS: PROTHROMBIN TIME 11.3 secs (10.8-13.4)
[2020-10-13 08:49] LABS: ALBUMIN 3.3 g/dL (3.4-5.0); ANION GAP 10.7 (8-16); ASPARTATE AMINOTRANSFERASE 27 U/L (15-37); CARBON DIOXIDE 26.1 mmol/L (21-32); CHLORIDE 105 mmol/L (98-107); CREATININE 0.9 mg/dL (0.6-1.3); GLUCOSE 137 mg/dL (74-106); POTASSIUM 3.8 mmol/L (3.5-5.1); SODIUM SERUM 138 mmol/L (136-145); TOTAL BILIRUBIN 1.8 mg/dL (0.0-1.0); UREA NITROGEN, BLOOD 16 mg/dL (7-18)
[2020-10-13 08:57] LABS: CHOL/HDL RATIO 3.1 (1-4.5); FREE T4 (FREE THYROXINE) 1.14 ng/dL (0.76-1.46); MAGNESIUM 1.7 mg/dL (1.8-2.4); PHOSPHORUS 2.7 mg/dL (2.5-4.9); THYROID STIMULATING HORMONE 1.31 uIU/mL (0.34-3.74)
[2020-10-13] MEDS: LACTOBACILLUS RHAMNOSUS GG 1 EACH CAP PO SCH (09:00)
[2020-10-13] MEDS: FUROSEMIDE 20 MG/2 ML VIAL IVP SCH ×2 (09:00→21:13)
[2020-10-13] MEDS ORDERED: HEPARIN PER PHARMACY MC PRN (10:00)
--- NOTE | 2020-10-13 10:00 | NUR ---
L/R NARES MRSA SPECIMEN COLLECTED AND SENT TO LAB FOR PROCESSING
--- NOTE | 2020-10-13 10:01 | NUR ---
SPOKE TO TO INFORM PT HAS BEEN ADMITTED, STATES SHE ALREADY KNEW. CONDITION STATUS UPDATED
--- NOTE | 2020-10-13 10:32 | NUR ---
DC PLANN[age] YRS OLD MALE PATIENT WAS ADMITTED FROM HOME WITH A DX OF PULMONARY EMBOLISM. PATIENT HAS A HX OF COPD, HTN, A-FIB AND CHF. CXR SHOWED LARGE CARDIAC [place], CT CHEST SHOWED POORLY IDENTIFIED FILLING DEFECTS WITHIN THE LEFT MAIN PULMONARY ARTERY PE VS FLOW ARTIFACTS. CT ABD MODERATE SIZE HIATAL HERNIA. RAPID COVID TEST NEGATIVE. BLOOD AND URINE CULTURE PENDING. STARTED ON HEPARIN DRIP , IV ABX ROCEPHIN AND LASIX IV. CONSULTED WITH CARDIO, PULMO AND NEPHRO. DC PLANNING TO GO HOME WHEN STABLE CM TO FOLLOW. Addendum: 10/17/20 at 1030 by Vaishnavi Rivas RN DC PLANING: SEEN BY PULMO AND ZOOGLER DR JOHANSEN CONTINUE MAINTENANCE DOSE IV LASIX , XARELTO, AND ENCOURAGED TO STOP METH USE. PT IS IRRITABLE AND CONFUSED AT TIMES. PT RECOMMENDED SNF PLACEMENT PATIENT REFUSED TO GO TO SNF WILL CONTACT PT'S JOHNNY. CM TO FOLLOW Addendum: 10/18/20 at 1053 by Anjana Houston CM TRUDY SCREEN PRINTING INSPECTOR: FAXED ORDER FOR HOME HEALTH TO [facility]. SPOKE TO JERMAINE TSAI [phone] SHE WILL CALL ME BACK ONCE HOME HEALTH IS ARRANGED. Addendum: 10/18/20 at 1301 by Anjana Houston CM TRUDY SCREEN PRINTING INSPECTOR: RECEIVED A PHONE CALL BACK FROM JERMAINE TSAI, HOME HEALTH HAS BEEN ARRANGED WITH [facility] [phone]. FOLLOW UP APPOINTMENT Friday AT 3:15 PM. Saurabh Ngo [facility]
[2020-10-13] MEDS: lisinopriL 10 MG TAB PO SCH (10:55)
[2020-10-13] MEDS: hePARIN / DEXT 5% PREMIX 250 ML IV SCH ×2 (10:56→17:07)
--- NOTE | 2020-10-13 11:00 | NUR ---
HEPARIN DRIP STARTED, REC'D CALL FROM PHARMACY, LOVENOX GIVEN IN ED. THEREFORE HEPARIN DRIP SHOULD BE STARTED 12 HOURS, NOTIFIED DR. GIRON SHE IS RECOMMENDED BY PHARMACY TO BEGIN HEPARIN AT 1700, PER DR. GIRON OK TO HOLD HEPARIN AND RESUME DRIP AT 1700. HEPARIN DRIP DISCONTINUED. WILL RESUME AT 1700. MOA AND SIDE EFFFECTS DISCUSSED WITH PT WHO VERBALIZED UNDERSTANDING.
[2020-10-13 11:27] LABS: BARBITURATE, URINE NEGATIVE ng/ml (NEG <=200); BENZODIAZEPINE, URINE NEGATIVE ng/mL (NEG <=200); CANNABINOID, URINE NEGATIVE ng/mL (NEG <=50); COCAINE, URINE NEGATIVE ng/mL (NEG <=300); OPIATE, URINE NEGATIVE ng/mL (NEG <=2000); PHENCYCLIDINE SCREEN,URINE NEGATIVE ng/mL (NEG <=25)
[2020-10-13 12:00] VITALS: BP 134/101
--- NOTE | 2020-10-13 13:03 | NUR ---
PT SLEEPING, NO SIGN OF DISTRESS.
--- NOTE | 2020-10-13 14:11 | NUR ---
PATIENT HAS BEEN SCREENED AND CATEGORIZED MODERATE NUTRITION RISK. PATIENT WILL BE SEEN WITHIN 3-5 DAYS OF ADMISSION. 10/15/20 10/17/[address]
--- NOTE | 2020-10-13 14:45 | NUR ---
SPOKE TO ATTILA WONG, , UPDATED ON STATUS OF PT'S CONDITION. PLACED PHONE IN PT'S ROOM AND DIALED NUMBER FOR PT TO CONTACT DIRECTLY. PT OSWALD
[2020-10-13] MEDS ORDERED: MAG SULF 2000 MG/WATER PREMIX 50 ML IV SCH (15:00)
[2020-10-13 16:00] VITALS: BP 137/94
--- NOTE | 2020-10-13 16:00 | NUR ---
PT ACCIDENTALLY PULLED OUT IV WHILE WALKING TO RESTROOM, CLEANED BLOOD OFF OF R. HAND. NEW IV SITE WILL BE PLACED.
--- NOTE | 2020-10-13 16:15 | NUR ---
NEW IV CATHETER PLACED BY DAVID VIRGEN. Julia.HAND 22G AND R. WRIST 22G. ONE ATTEMPT TO INSERT EACH LINE. PT TOLERATED PROCEDURE WELL.
--- NOTE | 2020-10-13 17:03 | NUR ---
RESUMED HEPARIN DRIP, DISCUSSED MOA AND SIDE EFFECTS DISCUSSED WITH PT WHO VERBALIZED UNDERSTANDING. WILL CONTINUE TO MONITOR. PTT WAS ORDERED FOR 2300 ( 6 HOURS AFTER STARTING DRIP). ALL SAFETY MEASURES IN PLACE.
[2020-10-13] MEDS: ATORVASTATIN 20 MG TAB PO SCH (17:12)
--- NOTE | 2020-10-13 19:20 | NUR ---
ENDORSED PT TO ASSOCIATE PROFESSOR OF THEATRE NURSE, PT A/OX4, RA. ON HEPARIN DRIP AT 14ML/HR, PTT ORDERED FOR 2300. CALL LIGHT WITHIN REACH. ALL SAFETY MEASURES IN PLACE.
--- NOTE | 2020-10-13 19:21 | NUR ---
RECEIVED BEDSIDE ENDORSEMENT FROM AM SHIFT RN. PATIENT IS AAOX4, HEPARIN DRIP AT 14ML/HR INFUSING. ON ROOM AIR, AMBULATORY, SAFETY MEASURES IN PLACE, PLAN OF CARE DISCUSSED, CALL LIGHT WITHIN REACH.
[2020-10-13 20:00] VITALS: BP 140/93
--- NOTE | 2020-10-13 21:15 | NUR ---
DUE MEDS GIVEN ORDERED, TOLERATED WELL, CALL LIGHT WITHIN REACH.
[2020-10-13] MEDS: ZOLPIDEM 5 MG TAB PO PRN (23:15)
--- NOTE | 2020-10-13 23:18 | NUR ---
PT UNABLE TO SLEEP. OFFERED SLEEPING MED, PT SAID YES. AMBIEN PO GIVEN ORDERED, TOLERATED WELL. KEPT WARM AND COMFORTABLE, WILL CONTINUE TO MONITOR, CALL LIGHT WITHIN REACH.
[2020-10-14] VITALS: BP 122/81
--- NOTE | 2020-10-14 00:09 | NUR ---
RECEIVED LATEST PTT 56.5, NO CHANGES PER PROTOCOL, WILL CONTINUE TO MONITOR, CALL LIGHT WITHIN REACH.
--- NOTE | 2020-10-14 02:10 | NUR ---
PT WALKED AND URINATED ON THE FLOOR SEVERAL TIMES, ASSISTED PT BACK TO BED SAFELY, KEPT CLEAN, DRY AND COMFORTABLE, CALL LIGHT WITHIN REACH.
[2020-10-14 04:00] VITALS: BP 135/81
--- NOTE | 2020-10-14 04:00 | NUR ---
V/S TAKEN, KEPT COMFORTABLE, WILL CONTINUE TO MONITOR, CALL LIGHT WITHIN REACH.
[2020-10-14] MEDS: LORazepam 2 MG/ML VIAL IM/IVP PRN ×4 (06:01→23:02)
--- NOTE | 2020-10-14 06:09 | NUR ---
PATIENT IS ANXIOUS, GETS UP IN BED FOR NO REASON, THEN HE GET BACK TO BED AGAIN, ASKED IF HE'S OK, HE SAID YES. ATIVAN GIVEN PRN FOR ANXIETY ORDERED.
[2020-10-14 06:55] LABS: ANION GAP 15.3 (8-16); CHLORIDE 100 mmol/L (98-107); CREATININE 1.3 mg/dL (0.6-1.3); GLUCOSE 117 mg/dL (74-106); MAGNESIUM 1.7 mg/dL (1.8-2.4); PHOSPHORUS 2.8 mg/dL (2.5-4.9); POTASSIUM 3.3 mmol/L (3.5-5.1); SODIUM SERUM 138 mmol/L (136-145); UREA NITROGEN, BLOOD 14 mg/dL (7-18)
--- NOTE | 2020-10-14 07:04 | NUR ---
RECEIVED THE LATEST PTT 58.6, ON THERAPEUTIC LEVEL, NO CHANGE PER PROTOCOL.
--- NOTE | 2020-10-14 07:27 | NUR ---
PT STABLE, NO SOB, NO DISTRESS, ALL NEEDS ATTENDED, BEDSIDE ENDORSEMENT GIVEN TO AM SHIFT RN FOR CONTINUITY OF CARE.
[2020-10-14 07:29] LABS: BASOPHILS % (AUTO) 0.3 % (0.0-2.0); HEMATOCRIT 51.8 % (36-52); HEMOGLOBIN 17.8 g/dL (12.0-18.0); LYMPHOCYTES # (AUTO) 1.8 K/uL (2.0-11.5); LYMPHOCYTES % (AUTO) 12.3 % (20.5-51.1); MEAN CORPUSCULAR HEMOGLOBIN 32 pg (27-31); MEAN CORPUSCULAR HGB CONC 34 g/dL (33-37); MEAN CORPUSCULAR VOLUME 94.1 fL (80-94); MONOCYTES % (AUTO) 6.4 % (1.7-9.3); NEUTROPHILS # (AUTO) 12.1 K/uL (1.8-7.7); PLATELET COUNT (AUTO) 286 K/uL (140-450); RED BLOOD CELL COUNT(AUTO) 5.51 MIL/uL (4.20-6.10); RED CELL DISTRIBUTION WIDTH 13.4 % (11.6-13.7); WHITE BLOOD COUNT (AUTO) 14.9 K/uL (4.8-10.8)
--- NOTE | 2020-10-14 07:35 | NUR ---
RECEIVED BEDSIDE ENDORSEMENT FROM NIGHTSNDFT NURSE FOR CONTINUITY OF CARE.
[2020-10-14 08:00] VITALS: BP 96/73
[2020-10-14] MEDS ORDERED: carvediloL 3.125 MG TAB PO SCH (09:00)
[2020-10-14] MEDS: lisinopriL 10 MG TAB PO SCH (09:00)
[2020-10-14] MEDS: ASPIRIN 81 MG TAB.CHEW PO SCH (09:29)
[2020-10-14] MEDS: LACTOBACILLUS RHAMNOSUS GG 1 EACH CAP PO SCH (09:29)
[2020-10-14] MEDS: FUROSEMIDE 20 MG/2 ML VIAL IVP SCH ×2 (09:31→21:41)
--- NOTE | 2020-10-14 09:37 | NUR ---
ADMINISTERED PRESCRIBED MEDS PER MD ORDER. PATIENT TOLERATED WELL. MEDICATION EDUCTION PROVIDED, REINFORCEMENT NEEDED, PATIENT IS CONFUSED. SAFETY MEASURES IN PLACE. WILL CONTINUE TO MONITOR.
--- NOTE | 2020-10-14 11:05 | NUR ---
ADMINISTERED PRESCRIBED MEDICATION FOR PRN AGITATION ORDERED BY MD. PATIENT TOLERATED WELL. MEDICATION REINFORCEMENT NEEDED. SAFETY MEASURES IN PLACE. WILL CONTINUE TO MONITOR.
[2020-10-14 12:00] VITALS: BP 124/49
[2020-10-14] MEDS ORDERED: MAG SULF 2000 MG/WATER PREMIX 50 ML IV PRN (13:00)
[2020-10-14] MEDS ORDERED: SODIUM PHOS / POTASSIUM PHOS 1 PKT PDR PO PRN (13:00)
[2020-10-14] MEDS ORDERED: POTASSIUM CHLORIDE 40 MEQ, LIDOCAINE MPF 1% 25 MG in NACL 0.9% 250 ML IV PRN (13:00)
[2020-10-14] MEDS ORDERED: AZITHROMYCIN 250 MG TAB PO SCH (14:20)
--- NOTE | 2020-10-14 15:24 | NUR ---
ADMINISTERED PRESCRIBED MEDS FOR PRN AGITATION PER MD ORDER. PATIENT GETTING OUT OF BED, UNSTEADY GAIT, FALL RISK. PATIENT HAS PULLED IV LINES, ON HEPARIN DRIP. MD ORDERED SOFT RESTRAINTS. PATIENT NOW IN BED, SOFT WRIST RESTRAINTS IN PLACE AT 1520. SAFETY MEASURES IN PLACE. WILL CONTINUE TO MONITOR.
[2020-10-14 16:00] VITALS: BP 99/64
--- NOTE | 2020-10-14 16:32 | NUR ---
PATIENT ASLEEP IN BED, VISIBLE RISE AND FALL OF CHEST NOTED. NO SIGNS OF DISCOMFORT OR DISTRESS. SKIN CHECK ON RESTRAINTS. CAP REFILL < 3 SEC[address]Y MEASURES IN PLACE. WILL CONTINUE TO MONITOR.
[2020-10-14] MEDS: ATORVASTATIN 20 MG TAB PO SCH (17:59)
--- NOTE | 2020-10-14 18:14 | NUR ---
PATIENT ROUNDING PERFORMED. PATIENT IS SLEEPING IN BED. PATIENT CLEANED AND CHANGED BY COLLEGE PROFESSOR AT 1700, RESTRAINTS REMOVED, SKIN CHECK PERFORMED. SAFETY MEASURES IN PLACE. WILL CONTINUE TO MONITOR.
--- NOTE | 2020-10-14 18:36 | NUR ---
PATIENT IS AWAKE, LOCK AND DAM EQUIPMENT REPAIRER ASSISTING W/ DINNER. SAFETY MEASURES IN PLACE.
--- NOTE | 2020-10-14 19:20 | NUR ---
RECEIVED BEDSIDE ENDORSEMENT FROM AM SHIFT RN. PT IS ASLEEP, ON HIS RT SIDE, RESPIRATION EVEN AND UNLABORED, AROUSABLE TO VERBAL, DENIES PAIN, ABD SOFT, HEPARIN DRIP INFUSING AT 1400 UNITS ON RW 22 G, INTACT AND PATENT, ON BILATERAL SOFT WRIST RESTRAIN FOR GETTING OUT OF BED UNASSISTED, PULLING OFF IV CATHETER. LOW BED IN PLACE, PLAN OF CARE DISCUSSED, SAFETY MEASURES IN PLACE, CALL LIGHT WITHIN REACH, WILL CONTINUE TO MONITOR.
[2020-10-14 20:00] VITALS: BP 99/71
[2020-10-14] MEDS: metroNIDAZOLE 500 MG/NS PREMIX 100 ML IV SCH (20:21)
--- NOTE | 2020-10-14 20:27 | NUR ---
FLAGYL IV GIVEN ORDERED, TOLERATED WELL, NO A/R NOTED. WILL CONTINUE TO MONITOR.
[2020-10-14] MEDS: ZOLPIDEM 5 MG TAB PO PRN (20:40)
--- NOTE | 2020-10-14 20:47 | NUR ---
TOLD PT THAT IF HE CANNOT SLEEP, JUST LET ME KNOW, I HAVE MED TO HELP HIM SLEEP. PT STATES, I WANT TO TAKE THE SLEEPING MED NOW. LOLA PO GIVEN PRN ORDERED FOR INSOMNIA
--- NOTE | 2020-10-14 21:20 | NUR ---
PATIENT IS ASLEEP, NOTED CHEST RISE. ROCEPHIN IV GIVEN ORDERED, TOLERATED WELL, NO A/R NOTED, WILL CONTINUE TO MONITOR.
--- NOTE | 2020-10-14 21:41 | NUR ---
BP 128/69, HR 101. LASIX IVP GIVEN ORDERED, TOLERATED WELL. WILL CONTINUE TO MONITOR.
[2020-10-14] MEDS ORDERED: KCL 20 MEQ/WATER INJ PREMIX 200 ML IV ONE (22:06)
[2020-10-14] MEDS ORDERED: KCL 20 MEQ/WATER INJ PREMIX 200 ML IV SCH (22:25)
--- NOTE | 2020-10-14 23:08 | NUR ---
PT IS ANXIOUS, ATIVAN IVP PRN GIVEN ORDERED, TOLERATED WELL, NO A/R NOTED, WILL CONTINUE TO MONITOR.
[2020-10-15] VITALS: BP 122/66
--- NOTE | 2020-10-15 01:00 | NUR ---
PATIENT IS ASLEEP, RESPIRATION EVEN AND UNLABORED, KEPT CLEAN, DRY AND COMFORTABLE. CALL LIGHT WITHIN REACH.
--- NOTE | 2020-10-15 02:50 | NUR ---
MAGNESIUM IV GIVEN PRN FOR MG 1.7 ORDERED, TOLERATED WELL, WILL CONTINUE TO MONITOR, CALL LIGHT WITHIN REACH.
[2020-10-15 04:00] VITALS: BP 116/80
[2020-10-15] MEDS: metroNIDAZOLE 500 MG/NS PREMIX 100 ML IV SCH ×3 (04:32→20:46)
--- NOTE | 2020-10-15 04:32 | NUR ---
FLAGYL IV GIVEN ORDERED, TOLERATED WELL, NO A/R NOTED.
[2020-10-15] MEDS: hePARIN / DEXT 5% PREMIX 250 ML IV SCH ×3 (06:30→14:42)
--- NOTE | 2020-10-15 06:37 | NUR ---
HEPARIN DRIP FINISHED, [place] [address] UNITS/ML. WILL CONTINUE TO MONITOR, CALL LIGHT WITHIN REACH.
--- NOTE | 2020-10-15 07:20 | NUR ---
PATIENT IS STABLE, NO SOB, NO DISTRESS, KEPT CLEAN, DRY AND COMFORTABLE, ALL NEEDS ATTENDED, BEDSIDE ENDORSEMENT PROVIDED TO AM SHIFT RN FOR CONTINUITY OF CARE. CONTINUE ON 1:1 SITTER.
--- NOTE | 2020-10-15 07:30 | NUR ---
PT RECEIVED FORM MANTEL CRAFTSMAN RN. PT RESTING IN BED COMFORTABLY. NO S/S OF DISTRESS AT THIS TIME sitter at bedside. all safety measures are in place. iv is dry clean and intact.
[2020-10-15 07:37] LABS: BASOPHILS % (AUTO) 0.3 % (0.0-2.0); EOSINOPHILS % (AUTO) 0.1 % (0.0-4.0); HEMATOCRIT 47.2 % (36-52); HEMOGLOBIN 15.9 g/dL (12.0-18.0); LYMPHOCYTES # (AUTO) 1.9 K/uL (2.0-11.5); LYMPHOCYTES % (AUTO) 15.1 % (20.5-51.1); MEAN CORPUSCULAR HEMOGLOBIN 32 pg (27-31); MEAN CORPUSCULAR HGB CONC 34 g/dL (33-37); MEAN CORPUSCULAR VOLUME 95.1 fL (80-94); MONOCYTES # (AUTO) 0.9 K/uL (0.8-1.0); MONOCYTES % (AUTO) 7.1 % (1.7-9.3); NEUTROPHILS # (AUTO) 9.7 K/uL (1.8-7.7); NEUTROPHILS % (AUTO) 77.4 % (42.2-75.2); PLATELET COUNT (AUTO) 267 K/uL (140-450); RED BLOOD CELL COUNT(AUTO) 4.96 MIL/uL (4.20-6.10); WHITE BLOOD COUNT (AUTO) 12.6 K/uL (4.8-10.8)
[2020-10-15 07:39] LABS: ANION GAP 11.7 (8-16); CHLORIDE 103 mmol/L (98-107); CREATININE 1.4 mg/dL (0.6-1.3); GLUCOSE 122 mg/dL (74-106); POTASSIUM 3.7 mmol/L (3.5-5.1); SODIUM SERUM 139 mmol/L (136-145); UREA NITROGEN, BLOOD 19 mg/dL (7-18)
[2020-10-15 07:42] LABS: MAGNESIUM 2.4 mg/dL (1.8-2.4); PHOSPHORUS 3.4 mg/dL (2.5-4.9)
--- NOTE | 2020-10-15 07:56 | NUR ---
PTT 85.2 RATE ADJUSTED PER MD ORDER. PT EDUCATED. PT NEEDS REINFORCEMENT. NO S/S OF DISTRESS AT THIS TME
[2020-10-15 08:00] VITALS: BP 105/50
--- NOTE | 2020-10-15 08:50 | NUR ---
PT SITTING AT EDGE OF BED. EATING BREAKFAST PT TOLERATED WELL. 100% WAS EATEN
[2020-10-15] MEDS: FUROSEMIDE 20 MG/2 ML VIAL IVP SCH (08:53)
[2020-10-15] MEDS: lisinopriL 10 MG TAB PO SCH (08:54)
[2020-10-15] MEDS: ASPIRIN 81 MG TAB.CHEW PO SCH (08:54)
[2020-10-15] MEDS: LACTOBACILLUS RHAMNOSUS GG 1 EACH CAP PO SCH (08:54)
[2020-10-15] MEDS: predniSONE 20 MG TAB PO SCH (08:54)
[2020-10-15] MEDS: LORazepam 2 MG/ML VIAL IM/IVP PRN ×2 (08:55→15:59)
[2020-10-15] MEDS ORDERED: AZITHROMYCIN 250 MG TAB PO SCH (09:00)
[2020-10-15] MEDS: carvediloL 6.25 MG TAB PO SCH (09:00)
--- NOTE | 2020-10-15 09:05 | NUR ---
MEDICATIONS ADMINISTERED PER MD ORDER. PT EDUCATED. VERBALIZED UNDERSTANDING. REINFORCEMENT NEEDED. PT RESTING IN BED EATING BREAKFAST. NO S/S OF DISTRESS. CALL LIGHT WITHIN REACH. PT EXPERIENCED AGITATION. PRN GIVEN PER MD ORDER.
--- NOTE | 2020-10-15 10:20 | NUR ---
PT ASSESSED. PT STILL IMPULSIVE AND TRYING TO GET OUT OF BED.
--- NOTE | 2020-10-15 10:45 | NUR ---
PTS MEDICATIONS GIVEN PER MD ORDER. PT EDUCATED. NO S/S OF DISTRESS AT THIS TIME. PTS IV FLUID RATE CHANGED PER MD ORDER. PT TOLERATED WELL.
--- NOTE | 2020-10-15 11:30 | NUR ---
PTS DERRICK CALLED. TRANSFERRED TO PT PT WAS BARBARA TO SPEAK TO .
[2020-10-15 12:00] VITALS: BP 104/62
--- NOTE | 2020-10-15 13:38 | NUR ---
PT RESTIN IN BED COMFORTABLY. MEDICATIONS GIVEN PER MD ORDER. PT EDUCATED AND VERBALIZED UNDERSTANDING NO S/S OF DISTRESS AT THIS TIME.
--- NOTE | 2020-10-15 14:42 | NUR ---
PTT 88.1. HEPARIN ADMINISTERED PER PROTOCOL. PT EDUCATED REINFORCEMENT NEEDED. NO S/S OF DISTRESS AT THIS TIME.
--- NOTE | 2020-10-15 14:48 | NUR ---
DERRICK CALLED (PTS ). PT WAS ASLEEP. SAID SHE WOULD CALL AGAIN LATER TO SPEAK TO HIM.
[2020-10-15 16:00] VITALS: BP 109/74
--- NOTE | 2020-10-15 16:00 | NUR ---
PT ANXIOUS GETTING OUT OF BED AND GROWLING. PRN GIVEN PER MD ORDER. PT EDUCATED VERBALIZED UNDERSTANDING. REINFORCEMENT NEEDED. PT TOLERATED WELL. NO S/S OF DISTRESS. SITTER AT BEDSIDE
[2020-10-15] MEDS: ATORVASTATIN 20 MG TAB PO SCH (17:00)
--- NOTE | 2020-10-15 17:00 | NUR ---
MEDICATIONS GIVEN PER MD ORDER. PT EDUCATED VERBALIZED UNDERSTANDING. REINFORCEMENT NEEDED. ALL SAFETY MEASURES ARE IN PLACE SITTER AT BEDSIDE.
--- NOTE | 2020-10-15 18:03 | NUR ---
PT CHANGED AND REPOSITIONED PT TAKEN OFF RESTRAINS FOR 15 MIN PT TOLERATED WELL. WILL CONTINUE TO MONITOR. PT EATING BREAKFAST NO N/V
--- NOTE | 2020-10-15 19:25 | NUR ---
PT ENDORSED TO WOOD CARVING MACHINE OPERATOR RN FOR CONTINUITY OF CARE. PT STABLE
[2020-10-15 20:00] VITALS: BP 99/64
--- NOTE | 2020-10-15 20:00 | NUR ---
PATIENT WAS RECEIVED IN BED ASLEEP WITH NORMAL BREATHING PATTERN, REGULAR AND EQUAL CHEST RISE. AND FALL.
--- NOTE | 2020-10-15 20:10 | NUR ---
PATIENT WAS ON BILATERAL SOFT RESTRAINT, RN CHECKED THE DISTAL CIRCULATION OF RESTRAINED LIMBS WITH GOOD CAP REFILL LESS THAN 3 SECONDS, ON HEPARIN DRIP RECEIVED PATIENT WAS RECEIVING CONTINUES 1100 UNITS/ HOUR. NEXT PTT IS SCHEDULED BY 2039 PER ORDER.
--- NOTE | 2020-10-15 22:08 | NUR ---
RN RECEIVED A CALL FROM THE LAB RE PTT RESULT= [id number], LEVEL WAS THERAPEUTIC PER PROTOCOL, HEPARIN STILL INFUSING AT 1100 UNITS/HOUR, CHARGE NURSE AWARE.
--- NOTE | 2020-10-15 23:20 | NUR ---
PATIENT COMPLAINED OF INABILITY TO SLEEP, RN ADMINISTER AMBIEN 5 MG, NEEDED PER ORDER.
[2020-10-15] MEDS: ZOLPIDEM 5 MG TAB PO PRN (23:24)
[2020-10-16] VITALS: BP 104/75
[2020-10-16 03:12] LABS: BASOPHILS % (AUTO) 0.1 % (0.0-2.0); EOSINOPHILS # (AUTO) 0.4 K/uL (0-0.4); EOSINOPHILS % (AUTO) 2.2 % (0.0-4.0); HEMATOCRIT 43.8 % (36-52); HEMOGLOBIN 14.8 g/dL (12.0-18.0); LYMPHOCYTES # (AUTO) 1.3 K/uL (2.0-11.5); MEAN CORPUSCULAR HEMOGLOBIN 32 pg (27-31); MEAN CORPUSCULAR HGB CONC 34 g/dL (33-37); MEAN CORPUSCULAR VOLUME 93.7 fL (80-94); MONOCYTES # (AUTO) 0.7 K/uL (0.8-1.0); MONOCYTES % (AUTO) 3.9 % (1.7-9.3); NEUTROPHILS # (AUTO) 14.4 K/uL (1.8-7.7); NEUTROPHILS % (AUTO) 85.8 % (42.2-75.2); PLATELET COUNT (AUTO) 273 K/uL (140-450); RED BLOOD CELL COUNT(AUTO) 4.68 MIL/uL (4.20-6.10); WHITE BLOOD COUNT (AUTO) 16.8 K/uL (4.8-10.8)
[2020-10-16 03:24] LABS: ANION GAP 11.7 (8-16); CARBON DIOXIDE 26.3 mmol/L (21-32); CHLORIDE 104 mmol/L (98-107); CREATININE 1.3 mg/dL (0.6-1.3); GLUCOSE 133 mg/dL (74-106); SODIUM SERUM 138 mmol/L (136-145); UREA NITROGEN, BLOOD 29 mg/dL (7-18)
[2020-10-16 03:28] LABS: PHOSPHORUS 3.4 mg/dL (2.5-4.9)
[2020-10-16 04:00] VITALS: BP 112/79
[2020-10-16] MEDS: metroNIDAZOLE 500 MG/NS PREMIX 100 ML IV SCH ×3 (06:36→21:42)
[2020-10-16] MEDS: hePARIN / DEXT 5% PREMIX 250 ML IV SCH (06:43)
--- NOTE | 2020-10-16 07:20 | NUR ---
RECEIVED PATIENT FROM NIGHT NURSE. PATIENT IN BED SLEEPING, CHEST NOTED RISING. NO NOTED DISTRESS AT THIS TIME. BILATERAL UPPER SOFT WRIST RESTRAINTS NOTED, ALSO SITTER BY BEDSIDE. RW 22G IN FUSING HEPARIN DRIP, PER PROTOCOL. LH 24G SL. HOB ELEVATED, SAFETY MEASURES IN PLACE. CALL LIGHT WITHIN REACH. WILL CONTINUE TO MONITOR.
[2020-10-16 08:00] VITALS: BP 107/75
[2020-10-16] MEDS: carvediloL 6.25 MG TAB PO SCH (08:59)
[2020-10-16] MEDS: RIVAROXABAN 15 MG TAB PO SCH ×2 (08:59→20:39)
[2020-10-16] MEDS: LACTOBACILLUS RHAMNOSUS GG 1 EACH CAP PO SCH (08:59)
[2020-10-16] MEDS: predniSONE 20 MG TAB PO SCH (09:00)
[2020-10-16] MEDS: ASPIRIN 81 MG TAB.CHEW PO SCH (09:00)
[2020-10-16] MEDS: lisinopriL 10 MG TAB PO SCH (09:00)
[2020-10-16] MEDS: FUROSEMIDE 20 MG/2 ML VIAL IVP SCH (09:01)
[2020-10-16] MEDS: LORazepam 2 MG/ML VIAL IM/IVP PRN ×2 (09:03→20:51)
--- NOTE | 2020-10-16 09:17 | NUR ---
PATIENT IN BED AWAKE AND ALERT. STARTED YELLING UNCONTROLLABLE. ABLE TO REDIRECT PATIENT AND CALMED PATIENT. ATIVAN GIVEN FOR ANXIETY. MORNING ROUTINE MEDICATIONS GIVEN. PATIENT TOLERATED WELL. ZESTRIL HELD D/T LOW PARAMETER. RIGHT IV ACCESS DISLODGED. LH 24 G INTACT AND PATENT. SKIN WARM TO TOUCH AND INTACT. NO EDEMA NOTED. PATIENT ABLE TO FOLLOW DIRECTION. BILATERAL UPPER RESTRAINTS NOTED, NO SKIN INJURIES NOTED. SITTER BY BEDSIDE. NO NOTED DISTRESS. WILL CONTINUE TO MONITOR.
--- NOTE | 2020-10-16 11:45 | NUR ---
PATIENT IN BED SLEEPING, CHEST NOTED RISING. NO NOTED DISTRESS. CONTINUE ON RESTRAINTS AND SITTER. WILL CONTINUE TO MONITOR.
--- NOTE | 2020-10-16 11:48 | NUR ---
LATE ENTRY -- ROCEPHIN INFUSION COMPLETED AT 0215, NS BOLUS AT 0235, AND POTASSIUM INFUSION COMPLETED AT 0315 ALL ON 10/13/20
[2020-10-16 12:00] VITALS: BP 114/85
--- NOTE | 2020-10-16 12:05 | NUR ---
PATIENT WOKE UP SCREAMING. SITTER AT BEDSIDE RESPONDED AND ABLE TO REDIRECT PATIENT. WILL CONTINUE TO MONITOR.
--- NOTE | 2020-10-16 13:34 | NUR ---
PATIENT YELLING INCOHERENTLY. STAFF ABLE TO REDIRECT PATIENT, AND PATIENT COMPLIED. WILL CONTINUE TO MONITOR. SITTER AT BEDSIDE
--- NOTE | 2020-10-16 14:29 | NUR ---
PATIENT CONTINUES TO BE EASILY IRRITABLE WITH VERBAL OUTBURSTS. PATIENT ATTEMPTED TO GET OUT OF BED SEVERAL TIMES BUT WAS REDIRECTED BACK TO BED. PATIENT COMPLIED WITH STAFF. RECEIVED ORDER FROM DR NEWTON TO RENEW RESTRAINTS. ORDER CARRIED OUT.
--- NOTE | 2020-10-16 15:58 | NUR ---
PATIENT IN BED AWAKE AND ALERT. RESPOND APPROPRIATELY. PATIENT HAS OCCASIONAL VERBAL OUTBURSTS BUT ABLE TO BE REDIRECTED. PATIENT MADE VERBAL AGREEMENT TO COMPLY WITH STAFF AND NOT REMOVE HIS IV ACCESS. BILATERAL UPPER SOFT RESTRAINTS REMOVED. DR NEWTON MADE AWARE. D/C ORDER FOR RESTRAINTS. SITTER REMAINS AT BEDSIDE FOR CLOSE OBSERVATION FOR SAFETY.
[2020-10-16 16:00] VITALS: BP 105/80
[2020-10-16] MEDS: ATORVASTATIN 20 MG TAB PO SCH (16:36)
--- NOTE | 2020-10-16 18:15 | NUR ---
PATIENT ASSISTED WITH DINNER. ATE WELL. NO NOTED DISTRESS. CALL LIGHT WITHIN REACH. WILL CONTINUE TO MONITOR.
--- NOTE | 2020-10-16 19:21 | NUR ---
ENDORSED PATIENT TO NIGHT NURSE. PATIENT IN STABLE CONDITION.
--- NOTE | 2020-10-16 19:22 | NUR ---
RECEIVED BEDSIDE REPORT FROM NORMA LUGO. PT AOX3 ON ROOM AIR. NO S/S RESPIRATORY DISTRESS. NO C/O PAIN AT THIS TIME/ IV SITE L HAND 24G PATENT INTACT, S.L. SAFETY MEASURES IN PLACE. SITTER AT BEDSIDE. WILL CONTINUE TO MONITOR
[2020-10-16 20:00] VITALS: BP 118/71
--- NOTE | 2020-10-16 20:47 | NUR ---
ADMINISTERED SCHEDULED MEDICATIONS. EDUCATION PROVIDED. NO DISTRESS NOTED. SAFETY MEASURES IN PLACE. CALL LIGHT WITHIN REACH. SITTER AT BEDSIDE. WILL CONTINUE TO MONITOR Addendum: 10/17/20 at 0320 by Jose M Gutierrez RN CALL LIGHT NOT WITHIN REACH
--- NOTE | 2020-10-16 20:51 | NUR ---
PRN ATIVAN GIVEN FOR C/O ANXIOUSNESS. EDUCATION PROVIDED. NO DISTRESS NOTED. SITTER AT BEDSIDE. WILL CONTINUE TO MONITOR
--- NOTE | 2020-10-16 23:15 | NUR ---
PATIENT ASLEEP IN BED. RESPIRATIONS EVEN UNLABORED. NO DISTRESS NOTED. SITTER AT BEDSIDE. WILL CONTINUE TO MONITOR
[2020-10-17] VITALS: BP 107/80
--- NOTE | 2020-10-17 02:38 | NUR ---
PATIENT ASLEEP IN BED. RESPIRATIONS EVEN UNLABORED. NO DISTRESS NOTED. SITTER AT BEDSIDE. WILL CONTINUE TO MONITOR
[2020-10-17 04:00] VITALS: BP 124/100
--- NOTE | 2020-10-17 04:55 | NUR ---
PATIENT ACCIDENTALLY PULLED OUT IV. CANNULA INTACT. REINSERTED NEW IV TO R HAND 24G, GOOD BLOOD RETURN, PATENT INTACT. NO DISTRESS NOTED. SITTER AT BEDSIDE. WILL CONTINUE TO MONITOR
[2020-10-17] MEDS: metroNIDAZOLE 500 MG/NS PREMIX 100 ML IV SCH ×3 (05:03→22:23)
--- NOTE | 2020-10-17 05:08 | NUR ---
SCHEDULED MEDICATION GIVEN. EDUCATION PROVIDED. NO DISTRESS NOTED. SITTER AT BEDSIDE. WILL CONTINUE TO MONITOR
[2020-10-17 06:07] LABS: BASOPHILS % (AUTO) 0.2 % (0.0-2.0); EOSINOPHILS % (AUTO) 0.4 % (0.0-4.0); HEMATOCRIT 43.1 % (36-52); HEMOGLOBIN 14.6 g/dL (12.0-18.0); LYMPHOCYTES # (AUTO) 2.3 K/uL (2.0-11.5); LYMPHOCYTES % (AUTO) 18.2 % (20.5-51.1); MEAN CORPUSCULAR HEMOGLOBIN 32 pg (27-31); MEAN CORPUSCULAR HGB CONC 34 g/dL (33-37); MEAN CORPUSCULAR VOLUME 93.2 fL (80-94); MONOCYTES # (AUTO) 0.6 K/uL (0.8-1.0); MONOCYTES % (AUTO) 5.1 % (1.7-9.3); NEUTROPHILS # (AUTO) 9.5 K/uL (1.8-7.7); NEUTROPHILS % (AUTO) 76.1 % (42.2-75.2); PLATELET COUNT (AUTO) 286 K/uL (140-450); RED BLOOD CELL COUNT(AUTO) 4.63 MIL/uL (4.20-6.10); RED CELL DISTRIBUTION WIDTH 12.9 % (11.6-13.7); WHITE BLOOD COUNT (AUTO) 12.5 K/uL (4.8-10.8)
[2020-10-17 06:13] LABS: ANION GAP 11.4 (8-16); CARBON DIOXIDE 25.4 mmol/L (21-32); CHLORIDE 107 mmol/L (98-107); CREATININE 1.1 mg/dL (0.6-1.3); GLUCOSE 104 mg/dL (74-106); POTASSIUM 3.8 mmol/L (3.5-5.1); SODIUM SERUM 140 mmol/L (136-145); UREA NITROGEN, BLOOD 29 mg/dL (7-18)
[2020-10-17 06:18] LABS: MAGNESIUM 1.9 mg/dL (1.8-2.4); PHOSPHORUS 3.7 mg/dL (2.5-4.9)
--- NOTE | 2020-10-17 07:24 | NUR ---
ENDORSED PATIENT TO DAY RN FOR CONTINUITY OF CARE. PATIENT IS IN STABLE CONDITION
--- NOTE | 2020-10-17 07:30 | NUR ---
RECEIVED BEDSIDE ENDORSEMENT FROM NIGHTSMNFT NURSE FOR CONTINUITY OF CARE.
[2020-10-17 08:00] VITALS: BP 109/72
[2020-10-17] MEDS: predniSONE 20 MG TAB PO SCH (09:24)
[2020-10-17] MEDS: LACTOBACILLUS RHAMNOSUS GG 1 EACH CAP PO SCH (09:24)
[2020-10-17] MEDS: FUROSEMIDE 20 MG/2 ML VIAL IVP SCH (09:24)
[2020-10-17] MEDS: carvediloL 6.25 MG TAB PO SCH (09:25)
[2020-10-17] MEDS: ASPIRIN 81 MG TAB.CHEW PO SCH (09:25)
[2020-10-17] MEDS: lisinopriL 10 MG TAB PO SCH (09:25)
[2020-10-17] MEDS: RIVAROXABAN 15 MG TAB PO SCH ×2 (09:34→21:36)
--- NOTE | 2020-10-17 09:37 | NUR ---
ADMINISTERED PRESCRIBED MEDS PER MD ORDER. PATIENT TOLERATED WELL. MEDICATION EDUCATION PROVIDED. PATIENT VERBALIZED UNDERSTANDING. SAFETY MEASURES IN PLACE. WILL CONTINUE TO MONITOR.
--- NOTE | 2020-10-17 11:07 | NUR ---
PATIENT ROUNDING PERFORMED, PATIENT SLEEPING IN BED. NO SIGNS OF DISTRESS NOTED. 1:1 SITTER HAS BEEN DISCONTINUED. SAFETY MEASURES IN PLACE. WILL CONTINUE TO MONITOR.
[2020-10-17] MEDS: LORazepam 2 MG/ML VIAL IM/IVP PRN ×2 (11:52→21:42)
--- NOTE | 2020-10-17 11:59 | NUR ---
PATIENT AGITATED, SCREAMING AND TRYING TO GET OUT OF BED. ADMINISTERED MEDICATION FOR PRN AGITATION ORDERED BY MD. PATIENT TOLERATED WELL. MEDICATION EDUCATION REINFORCEMENT NEEDED, SAFETY MEASURES IN PLACE. WILL CONTINUE TO MONITOR.
[2020-10-17 12:00] VITALS: BP 89/62
--- NOTE | 2020-10-17 12:53 | NUR ---
ADMINISTERED PRESCRIBED MEDS PER MD ORDER. PATIENT TOLERATED WELL. MEDICATION EDUCATION REINFORCEMENT NEEDED. PATIENT CURRENTLY SLEEPING. VISIBLE RISE AND FALL OF CHEST NOTED. NO SIGNS OF DISTRESS. SAFETY MEASURES IN PLACE. WILL CONTINUE TO MONITOR.
--- NOTE | 2020-10-17 13:11 | NUR ---
10/17/20 RD INITIAL ASSESSMENT COMPLETED PLEASE REFER TO NUTRITION ASSESSMENT UNDER CARE ACTIVITY FOR ESTIMATED NUTRITIONAL NEEDS. 1. CONTINUE CARDIAC DIET TOLERATED 2. RD TO FOLLOW-UP 3-5 DAYS, MODERATE RISK MARIA DEL [address] RD
--- NOTE | 2020-10-17 14:50 | NUR ---
PT IS SITTING BY THE WINDOW, IS OUTSIDE WITH THE FAMILY DOG. PT CALM, TALKING TO HIS . WILL CONTINUE TO MONITOR PT'S BEHAVIOR.
--- NOTE | 2020-10-17 15:09 | NUR ---
SPOKE WITH DR. NEWTON ON THE PHONE, UPDATED WITH PT. PER DR. NEWTON, PT IS FOR D/C HOME TOMORROW. NOTIFIED PT'S INDY, STATED HER PHONE IS AND UNABLE TO CHARGE IT. SHE WILL COME IN TOMORROW AT 11AM TO PAPER ROLL MACHINE OPERATOR PT. RN ASSIGNED MADE AWARE.
[2020-10-17 16:00] VITALS: BP 116/57
[2020-10-17] MEDS: ATORVASTATIN 20 MG TAB PO SCH (18:12)
--- NOTE | 2020-10-17 18:13 | NUR ---
ADMINISTERED PRESCRIBED MEDS PER MD ORDER. PATIENT TOLERATED WELL. MEDICATION EDUCATION REINFORCEMENT NEEDED. PATIENT SITTING UPRIGHT IN BED. APPEARS TO BE IN OVERALL GOOD MOOD. DINNER TRAY DELIVERED AT BEDSIDE. SAFETY MEASURES IN PLACE. WILL CONTINUE TO MONITOR.
--- NOTE | 2020-10-17 19:18 | NUR ---
BEDSIDE ENDORSEMENT PROVIDED TO NIGHTSHIFT NURSE FOR CONTINUITY OF CARE.
--- NOTE | 2020-10-17 19:19 | NUR ---
RECEIVED BEDSIDE REPORT FROM NORMA FRANCIS. PT AOX3 ON ROOM AIR. NO S/S RESPIRATORY DISTRESS. NO C/O PAIN AT THIS TIME. NO IV SITE. SAFETY MEASURES IN PLACE. CALL LIGHT WITHIN REACH. WILL CONTINUE TO MONITOR
[2020-10-17 20:00] VITALS: BP 119/76
--- NOTE | 2020-10-17 21:20 | NUR ---
INSERTED NEW IV TO LFA 24G PATENT INTACT. NO DISTRESS NOTED.
--- NOTE | 2020-10-17 21:47 | NUR ---
SCHEDULED MEDS GIVEN. PRN ATIVAN GIVEN FOR C/O ANXIETY. EDUCATION PROVIDED. NO DISTRESS NOTED. CALL LIGHT WITHIN REACH. BED IN LOW POSITION. WILL CONTINUE TO MONITOR
[2020-10-18] VITALS: BP 101/71
--- NOTE | 2020-10-18 00:30 | NUR ---
PATIENT ASLEEP IN BED. RESPIRATIONS EVEN UNLABORED. NO DISTRESS NOTED. CALL LIGHT WITHIN REACH. WILL CONTINUE TO MONITOR
[2020-10-18 04:00] VITALS: BP 121/88
[2020-10-18] MEDS: LORazepam 2 MG/ML VIAL IM/IVP PRN ×2 (04:01→10:12)
--- NOTE | 2020-10-18 04:01 | NUR ---
PRN ATIVAN GIVEN FOR ANXIETY. PT APPEARS RESTLESS AND AGITATED. NO DISTRESS NOTED. CALL LIGHT WITHIN REACH. WILL CONTINUE TO MONITOR
[2020-10-18 06:38] LABS: BASOPHILS % (AUTO) 0.2 % (0.0-2.0); EOSINOPHILS % (AUTO) 0.1 % (0.0-4.0); HEMATOCRIT 44.5 % (36-52); HEMOGLOBIN 14.8 g/dL (12.0-18.0); LYMPHOCYTES # (AUTO) 2.3 K/uL (2.0-11.5); LYMPHOCYTES % (AUTO) 18.9 % (20.5-51.1); MEAN CORPUSCULAR HEMOGLOBIN 31 pg (27-31); MEAN CORPUSCULAR HGB CONC 33 g/dL (33-37); MEAN CORPUSCULAR VOLUME 93.3 fL (80-94); MONOCYTES # (AUTO) 0.7 K/uL (0.8-1.0); NEUTROPHILS # (AUTO) 9.1 K/uL (1.8-7.7); NEUTROPHILS % (AUTO) 74.8 % (42.2-75.2); PLATELET COUNT (AUTO) 292 K/uL (140-450); RED BLOOD CELL COUNT(AUTO) 4.76 MIL/uL (4.20-6.10); WHITE BLOOD COUNT (AUTO) 12.2 K/uL (4.8-10.8)
[2020-10-18] MEDS: metroNIDAZOLE 500 MG/NS PREMIX 100 ML IV SCH (06:40)
[2020-10-18 06:42] LABS: ANION GAP 13.4 (8-16); CARBON DIOXIDE 25.6 mmol/L (21-32); CHLORIDE 107 mmol/L (98-107); CREATININE 1.1 mg/dL (0.6-1.3); GLUCOSE 91 mg/dL (74-106); SODIUM SERUM 142 mmol/L (136-145); UREA NITROGEN, BLOOD 30 mg/dL (7-18)
--- NOTE | 2020-10-18 06:42 | NUR ---
SCHEDULED MEDICATION GIVEN. NO DISTRESS NOTED. CALL LIGHT WITHIN REACH. WILL CONTINUE TO MONITOR
[2020-10-18 06:51] LABS: PHOSPHORUS 3.5 mg/dL (2.5-4.9)
--- NOTE | 2020-10-18 07:25 | NUR ---
ENDORSED PATIENT TO DAY RN FOR CONTINUITY OF CARE. PATIENT IS IN STABLE CONDITION
--- NOTE | 2020-10-18 07:30 | NUR ---
RECEIVED BEDSIDE ENDORSEMENT FROM NIGHTSWVFT NURSE FOR CONTINUITY OF CARE.
[2020-10-18 08:00] VITALS: BP 118/77
[2020-10-18] MEDS ORDERED: FUROSEMIDE 40 MG TAB PO SCH ×2 (09:00)
[2020-10-18] MEDS: ASPIRIN 81 MG TAB.CHEW PO SCH (09:36)
[2020-10-18] MEDS: LACTOBACILLUS RHAMNOSUS GG 1 EACH CAP PO SCH (09:37)
[2020-10-18] MEDS: lisinopriL 10 MG TAB PO SCH (09:37)
[2020-10-18] MEDS: predniSONE 20 MG TAB PO SCH (09:38)
[2020-10-18] MEDS: RIVAROXABAN 15 MG TAB PO SCH (09:40)
[2020-10-18] MEDS: carvediloL 6.25 MG TAB PO SCH (09:42)
--- NOTE | 2020-10-18 09:43 | NUR ---
ADMINISTERED PRESCRIBED MEDS PER MD ORDER. PATIENT TOLERATED WELL. MEDICATION EDUCATION REINFORCEMENT NEEDED. SAFETY MEASURES IN PLACE. WILL CONTINUE TO MONITOR.
--- NOTE | 2020-10-18 10:12 | NUR ---
PATIENT AGITATED, FALL RISK WHEN ATTEMPTING TO GET OUT OF BED. ADMINISTERED PRESCRIBED MED FOR PRN ANXIETY. PATIENT TOLERATED WELL. MEDICATION EDUCATION REINFORCEMENT NEEDED. SAFETY MEASURES IN PLACE. WILL CONTINUE TO MONITOR.
[2020-10-18] MEDS ORDERED: METR-520 PO (10:24)
[2020-10-18] MEDS ORDERED: LISI-486 PO (10:24)
[2020-10-18] MEDS ORDERED: ATOR20TA PO (10:24)
[2020-10-18] MEDS ORDERED: FURO-570 PO (10:24)
[2020-10-18] MEDS ORDERED: CARV6.25 PO (10:24)
[2020-10-18] MEDS ORDERED: RIVA20TA PO (10:24)
[2020-10-18 11:04] VITALS: BP 118/77
--- NOTE | 2020-10-18 11:45 | NUR ---
PATIENT IS DISCHARGED HOME W/ HOME HEALTH PENDING. PER CASE MANAGEMENT WILL MAKE ARRANGEMENTS AND CONTACT PATIENT/REP ONCE ASSIGNED. REMOVED PATIENT IV LINE, TELE MONITOR, ID BRACELET. PATIENT GIVEN SPONGE BATH AND CLEAN CLOTHES. GATHERED BELONGINGS AND PLACED IN PATIENT BAG. PATIENT UNABLE TO SIGN PAPERWORK, CONFUSED/REINFORCEMENT NEEDED. PATIENT TAKEN TO FRONT OF HOSPITAL WHERE HE WAS PICKED UP BY . PATIENT IS STABLE.
== END 2020-10-18 11:40 | disposition home or self-care (01) | DRG 871 ==
LOC: MED 00:25 → MTU 07:45 → OBSVTOIN 10-14 19:16 → MTU 10-17 10:52
PROVIDERS: ADMIT Family Medicine; ATTEND Family Medicine
DX: A41.9 Sepsis, unspecified organism (principal); N17.0 Acute kidney failure with tubular necrosis; I26.99 Other pulmonary embolism without acute cor pulmonale; I50.43 Acute on chronic combined systolic (congestive) and diastolic (congestive) heart failure; J96.01 Acute respiratory failure with hypoxia; I42.9 Cardiomyopathy, unspecified; N39.0 Urinary tract infection, site not specified; E46 Unspecified protein-calorie malnutrition; I48.0 Paroxysmal atrial fibrillation; I27.20 Pulmonary hypertension, unspecified; F15.90 Other stimulant use, unspecified, uncomplicated; K44.9 Diaphragmatic hernia without obstruction or gangrene; I11.0 Hypertensive heart disease with heart failure; J43.9 Emphysema, unspecified; E80.6 Other disorders of bilirubin metabolism; E87.6 Hypokalemia; E86.0 Dehydration; E83.42 Hypomagnesemia; Z68.25 Body mass index [BMI] 25.0-25.9, adult; K57.90 Diverticulosis of intestine, part unspecified, without perforation or abscess without bleeding; R59.1 Generalized enlarged lymph nodes; E83.51 Hypocalcemia; Z20.822 Contact with and (suspected) exposure to COVID-19
CPT/HCPCS: 96361; 96365; 96372; 96375; 99285; G0378; 36415; 71045; 71275; 80048; 80053; 80305; 81001; 82150; 83036; 83605; 83690; 83735; 83880; 84100; 84439; 84443; 84484; 85025; 85379; 85610; 85730; 87040; 87081; 87086; 93005; 93970; 97112; 97116; 97163-GP; 97530; G0482; J0696; J1644; J1650; J1940; J2001; J2060; J2270; J3010; J3475; J3480; J3490; J7030; J7060; J7512; Q9967

== ENCOUNTER 2020-10-19 19:26 | Emergency (ER) | payer OTHER, SELFPAY ==
[~2020-10-19] VITALS: Ht 172.7 cm; Wt 77.1 kg
[~2020-10-19 19:26] MED LIST changes: -ACET-9529 PO; -ASPI-1129 PO; +ATOR20TA PO; +CARV6.25 PO; -DIGO-91 PO; +FURO-570 PO; -FURO20TA8 PO; -LISI-424 PO; +LISI-486 PO; -METO-251 PO; +METR-520 PO; -POTA10TE30 PO; +RIVA20TA PO; -XAR10 PO
[2020-10-19 19:36] VITALS: BP 162/64
--- NOTE | 2020-10-19 19:36 | NUR ---
TO BED AMBULATORY
--- NOTE | 2020-10-19 20:04 | NUR ---
Dr. Ignacio examining patient.
--- NOTE | 2020-10-19 20:05 | NUR ---
PATIENT BIB SELF FOR C/O SOB X 1 HOUR. PATIENT A & O X4. PATIENT NOTED WITH O2 SAT 88% ON ROOM AIR. SKIN IS WARM, DRY AND INTACT. AMBULATORY. SPEECH IS CLEAR. NO NOTED WHEEZING, BILATERAL LUNGS CLEAR THROUGHOUT. PATIENT REPORTS HE WAS RECENTLY ADMITTED TO HOSPITAL BUT LEFT AMA YESTERDAY. PATIENT DENIES COUGH. CONNECTED TO MONITOR AND PLACED ON 3L OF OXYGEN. PLACED IN GOWN. BED LOCKED AND IN LOWEST POSITION, BED RAIL X 2. SEE COMPLETE ASSESSMENT FOR FURTHER DETAILS. MED HX: COPD, CHF, A FIB ALLERGIES: DENIES Addendum: 10/20/20 at 0123 by [email or web address] RECENT ADMISSION FOR PULMONARY EMBOLISM.
--- NOTE | 2020-10-19 20:10 | NUR ---
IV 20 G RAC ESTABLISHED. LABS DRAWN AND HAND GIVEN TO DONTE BROADCAST PROGRAM DIRECTOR, AT BEDSIDE.
[2020-10-19 20:19] LABS: BASOPHILS % (AUTO) 0.3 % (0.0-2.0); EOSINOPHILS # (AUTO) 0.1 K/uL (0-0.4); EOSINOPHILS % (AUTO) 0.7 % (0.0-4.0); HEMATOCRIT 45.2 % (36-52); HEMOGLOBIN 15.4 g/dL (12.0-18.0); LYMPHOCYTES # (AUTO) 2.5 K/uL (2.0-11.5); LYMPHOCYTES % (AUTO) 24.1 % (20.5-51.1); MEAN CORPUSCULAR HEMOGLOBIN 32 pg (27-31); MEAN CORPUSCULAR HGB CONC 34 g/dL (33-37); MEAN CORPUSCULAR VOLUME 94.9 fL (80-94); MONOCYTES # (AUTO) 0.9 K/uL (0.8-1.0); MONOCYTES % (AUTO) 8.6 % (1.7-9.3); NEUTROPHILS # (AUTO) 6.9 K/uL (1.8-7.7); NEUTROPHILS % (AUTO) 66.3 % (42.2-75.2); PLATELET COUNT (AUTO) 337 K/uL (140-450); RED BLOOD CELL COUNT(AUTO) 4.76 MIL/uL (4.20-6.10); RED CELL DISTRIBUTION WIDTH 13.1 % (11.6-13.7); WHITE BLOOD COUNT (AUTO) 10.4 K/uL (4.8-10.8)
--- NOTE | 2020-10-19 20:20 | NUR ---
EKG PERFORMED AT BEDSIDE.
--- NOTE | 2020-10-19 20:31 | NUR ---
X-Ray at bedside.
[2020-10-19 20:40] LABS: ANION GAP 10.4 (8-16); ASPARTATE AMINOTRANSFERASE 39 U/L (15-37); CARBON DIOXIDE 29.1 mmol/L (21-32); CHLORIDE 109 mmol/L (98-107); CREATININE 1.3 mg/dL (0.6-1.3); GLUCOSE 154 mg/dL (74-106); POTASSIUM 3.5 mmol/L (3.5-5.1); PROTHROMBIN TIME 11.9 secs (10.8-13.4); SODIUM SERUM 145 mmol/L (136-145); TOTAL BILIRUBIN 0.7 mg/dL (0.0-1.0); UREA NITROGEN, BLOOD 23 mg/dL (7-18)
--- NOTE | 2020-10-19 21:10 | NUR ---
SPOKE WITH PATIENTS LISTED UNDER DEMOGRAPHIC DATA, JOHNNY. REPORTS PATIENT LEFT AMA FROM HOSPITAL YESTERDAY. SHE DENIES THAT HE IS TAKING ANY MEDICATIONS REGULARLY. STATES AT HOME LATELY HE HAS BEEN RUNNING OUTSIDE WITHOUT CLOTHES AND TAKES NAPS FREQUENTLY IN THE DRIVEWAY. DENIES ANY CURRENT DRUG USE THAT SHE IS AWARE OF. CHARLA MADE AWARE.
--- NOTE | 2020-10-19 21:15 | NUR ---
KATY COLLECTED, WALKED TO LAB AND HAND GIVEN TO DONTE AGENCY DEVELOPMENT MANAGER.
--- NOTE | 2020-10-19 22:11 | NUR ---
O2 DECREASED TO 2L, SAT 95%. NO NOTED RESPIRATORY DISTRESS AT THIS TIME. PATIENT RESTING COMFORTABLY IN BED.
--- NOTE | 2020-10-19 23:00 | NUR ---
CALLED AND UPDATED PATIENTS JOHNNY REGARDING PENDING ADMISSION. SHE VERBALIZED UNDERSTANDING.
--- NOTE | 2020-10-19 23:36 | NUR ---
RECIEVED CALL FROM PATIENTS . UPDATED REGARDING PATIENT STATUS.
--- NOTE | 2020-10-20 00:12 | NUR ---
PATIENT NOTED TO HAVE SOILED PANTS AND BEDDING. PERINEAL CARE PERFORMED WITH ASSIST FROM BRODIE KINCAID. PATIENT PLACED IN DIAPER AND BEDDING CHANGED. REDNESS NOTED TO PERINEAL AREA, PATIENT STATING HE FREQUENTLY GOES TO THE RESTROOM IN HIS PANTS. NOTED WITH DRY FECES ON LEG. PATIENT REPOSITIONED FOR COMFORT.
--- NOTE | 2020-10-20 00:18 | NUR ---
PATIENT NOTED TO BE STANDING OUTSIDE OF ROOM IN DIAPER. PATIENT WAS REDIRECTED BACK TO BED. PT COOPERATIVE AT THIS TIME. WILL CONTINUE TO MONITOR.
--- NOTE | 2020-10-20 00:25 | NUR ---
RECIEVED CALL FROM MD TRACY FOR POSSIBLE TRANSFER. INFORMATION PROVIDED.
--- NOTE | 2020-10-20 01:22 | NUR ---
Patient appears to be resting comfortably in bed. Vital Signs within normal limits. Respirations even and unlabored. CURRENTLY ON ROOM AIR, 100%.
--- NOTE | 2020-10-20 02:00 | NUR ---
CONSENT FOR TRANSPORT OBTAINED AND SIGNED.
--- NOTE | 2020-10-20 02:05 | NUR ---
Patient to be transferred to [facility]. Is being transferred due to INSURANCE PURPOSES. Receiving facility has accepting physician and available space. ER physician has signed transfer form. Patient or responsible democrat has agreed to transfer and signed form. Patient belongings inventoried and will be sent with patient. Copy of nursing notes, lab reports, EKG, Physicians Orders and X-rays to be sent with patient. Report called to PROMISE DAVE at receiving facility. [facility] ambulance service has been called for transfer. ETA is 90 MINUTES.
--- NOTE | 2020-10-20 02:11 | NUR ---
ATTEMPTED TO CALL PATIENTS , JOHNNY, REGARDING TRANSFER TO [facility], NO ANSWER.
--- NOTE | 2020-10-20 02:16 | NUR ---
PATIENTS RETURNED CALL. EXPLAINED PATIENT WILL BE TRANSFERED TO [facility]. SHE VERBALIZED UNDERSTANDING AND STATED SHE WOULD CALL [facility] IN THE MORNING.
--- NOTE | 2020-10-20 02:33 | NUR ---
Patient appears to be resting comfortably in bed. Vital Signs within normal limits. Respirations even and unlabored.
--- NOTE | 2020-10-20 04:14 | NUR ---
Patient appears to be resting comfortably in bed. Vital Signs within normal limits. Respirations even and unlabored. NO NOTED RESPIRATORY DISTRESS. AWAITING [facility] ARRIVAL.
[2020-10-20 04:25] VITALS: BP 114/70
--- NOTE | 2020-10-20 04:25 | NUR ---
[facility] TRANSPORT AT BEDSIDE
--- NOTE | 2020-10-20 04:25 | NUR ---
PATIENT BEING TRANSFERED TO [facility] [address] [facility] VIA GURNEY.
--- NOTE | 2020-10-20 04:35 | NUR ---
PT TAKEN BY CHRISTINA TO [facility] ROOM 2143
== END 2020-10-20 04:35 | disposition short-term general hospital (02) ==
LOC: MED 19:26
DX: R06.02 Shortness of breath (principal); Z20.822 Contact with and (suspected) exposure to COVID-19; R09.02 Hypoxemia; J44.9 Chronic obstructive pulmonary disease, unspecified; I50.9 Heart failure, unspecified; F17.200 Nicotine dependence, unspecified, uncomplicated
CPT/HCPCS: 36415; 71045; 80053; 83880; 84484; 85025; 85610; 85730; 93005; 99285

== ENCOUNTER 2021-06-29 20:04 | Inpatient (IN) | payer OTHER, SELFPAY ==
[~2021-06-29] VITALS: Ht 172.7 cm; Wt 68.0 kg
[2021-06-29 21:00] VITALS: BP 156/106
--- NOTE | 2021-06-29 21:55 | NUR ---
RECEIVED IN BED 8 WITH C/O SOB. RESPIRATIONS APPEAR REGULAR AND UNLABORED AT THIS TIME.
--- NOTE | 2021-06-29 22:20 | NUR ---
PT IS BECOMING ANXIOUS AND SLIGHTLY RESTLESS. RR NOW 28-32. PT IS UNKEMPT AND HAS BEEN INCONTINENT OF URINE. DIFFICULT TO MAINTAIN MONITOR ON PT DUE TO RESTLESSNESS. DOES FOLLOW COMMANDS. IV ESTABLISHED LEFT A/C FOLLOWED BY MEDS ORDERED
[2021-06-29] MEDS ORDERED: diphenhydrAMINE 50 MG/ML VIAL ONE (23:24)
[2021-06-29] MEDS ORDERED: LORazepam 2 MG/ML VIAL ONE (23:24)
[2021-06-29] MEDS ORDERED: DEXAMETHASONE 4 MG/ML VIAL IVP ONE (23:30)
[2021-06-29] MEDS ORDERED: ALBUTEROL SULFATE/IPRATROPIU 3 ML SOL IH ONE (23:30)
[2021-06-29] MEDS ORDERED: LORazepam 2 MG/ML VIAL IVP ONE (23:45)
[2021-06-29] MEDS ORDERED: diphenhydrAMINE 50 MG/ML VIAL IVP ONE (23:45)
[2021-06-30 00:48] LABS: BASOPHILS % (AUTO) 0.2 % (0.0-2.0); HEMATOCRIT 37.7 % (36-52); HEMOGLOBIN 12.8 g/dL (12.0-18.0); LYMPHOCYTES # (AUTO) 1.9 K/uL (2.0-11.5); LYMPHOCYTES % (AUTO) 12.2 % (20.5-51.1); MEAN CORPUSCULAR HEMOGLOBIN 32 pg (27-31); MEAN CORPUSCULAR HGB CONC 34 g/dL (33-37); MEAN CORPUSCULAR VOLUME 93.2 fL (80-94); MONOCYTES # (AUTO) 1.2 K/uL (0.8-1.0); MONOCYTES % (AUTO) 7.9 % (1.7-9.3); NEUTROPHILS # (AUTO) 12.4 K/uL (1.8-7.7); NEUTROPHILS % (AUTO) 79.7 % (42.2-75.2); PLATELET COUNT (AUTO) 250 K/uL (140-450); RED BLOOD CELL COUNT(AUTO) 4.05 MIL/uL (4.20-6.10); RED CELL DISTRIBUTION WIDTH 12.8 % (11.6-13.7); WHITE BLOOD COUNT (AUTO) 15.5 K/uL (4.8-10.8)
[2021-06-30] MEDS ORDERED: NACL 0.9% 1,000 ML IV ONE (00:50)
--- NOTE | 2021-06-30 00:56 | NUR ---
BLOOD GAS DRAWN
--- NOTE | 2021-06-30 01:00 | NUR ---
AWAKE. SPOT PULSE OX = 100%. RESPIRATIONS ARE REGULAR AT THIS TIME. PT CONTINUES TO PULL AT MONITOR LEADS
[2021-06-30 01:01] LABS: CARBON DIOXIDE 28.8 mmol/L (21-32); CHLORIDE 107 mmol/L (98-107); GLUCOSE 118 mg/dL (74-106); POTASSIUM 3.8 mmol/L (3.5-5.1); SODIUM SERUM 145 mmol/L (136-145); UREA NITROGEN, BLOOD 22 mg/dL (7-18)
[2021-06-30] MEDS ORDERED: LORazepam 2 MG/ML VIAL ONE ×2 (01:12→16:45)
[2021-06-30 01:15] LABS: ALBUMIN 2.2 g/dL (3.4-5.0); ASPARTATE AMINOTRANSFERASE 19 U/L (15-37); TOTAL BILIRUBIN 0.8 mg/dL (0.0-1.0)
[2021-06-30] MEDS ORDERED: LORazepam 2 MG/ML VIAL IVP ONE ×4 (01:30→06:45)
[2021-06-30] MEDS ORDERED: AZITHROMYCIN 1,000 MG in DEXTROSE 5% 500 ML IV ONE (02:55)
[2021-06-30] MEDS ORDERED: ALBUTEROL SULFATE/IPRATROPIU 3 ML SOL IH PRN ×2 (04:55→17:40)
[2021-06-30] MEDS ORDERED: ONDANSETRON 4 MG/2 ML VIAL IM/IVP PRN (04:55)
[2021-06-30] MEDS ORDERED: HYDROcodone/APAP 5/325 MG 1 TAB TAB PO PRN (04:55)
[2021-06-30] MEDS ORDERED: MORPHINE SULFATE 2 MG/ML SYR IVP PRN (04:55)
[2021-06-30] MEDS: NACL 0.9% 1,000 ML IV SCH ×2 (04:55→23:22)
[2021-06-30] MEDS ORDERED: ACETAMINOPHEN 325 MG TAB PO PRN (04:55)
[2021-06-30] MEDS ORDERED: cefTRIAXone 1,000 MG VIAL ONE (04:55)
[2021-06-30] MEDS ORDERED: POTASSIUM CHLORIDE 10 MEQ TABER PO PRN (04:55)
[2021-06-30] MEDS ORDERED: MAGNESIUM OXIDE 400 MG TAB PO PRN (04:55)
[2021-06-30] MEDS ORDERED: DOCUSATE SODIUM 100 MG GELCAP PO PRN (04:55)
[2021-06-30] MEDS ORDERED: SODIUM PHOS / POTASSIUM PHOS 1 PKT PDR PO PRN (04:55)
[2021-06-30] MEDS ORDERED: AZITHROMYCIN 500 MG INJ VIAL IV ONE (04:56)
[2021-06-30] MEDS ORDERED: diphenhydrAMINE 50 MG/ML VIAL IVP ONE (05:20)
--- NOTE | 2021-06-30 05:30 | NUR ---
KAM TAKEN TO LAB. HANDED TO BARTOLO
[2021-06-30] MEDS ORDERED: DILTIAZEM 25 MG/5 ML VIAL IVP ONE (05:55)
--- NOTE | 2021-06-30 06:00 | NUR ---
EKG WAS DONE SHOWING A-FIB WITH RVR. CARDIZEM IV GIVEN ORDERED. PT HAS BEEN INCONTINENT OF URINE. PT ATTEMPTS TO PUNCH WHEN TRYING TO CLEAN WET LINENS AND CLOTHES
--- NOTE | 2021-06-30 07:06 | NUR ---
PATIENT HAS BEEN SCREENED AND CATEGORIZED MODERATE NUTRITION RISK. PATIENT WILL BE SEEN WITHIN 3-5 DAYS OF ADMISSION. 07/01/21-07/02/21 CARLOS ALBA MS, RDN
--- NOTE | 2021-06-30 07:30 | NUR ---
REPORT RECEIVED FROM PROMISE JIMENEZ FOR CONTINUITY OF PATIENT CARE.
[2021-06-30 08:05] LABS: BASOPHILS % (AUTO) 0.1 % (0.0-2.0); HEMATOCRIT 40.7 % (36-52); HEMOGLOBIN 13.7 g/dL (12.0-18.0); LYMPHOCYTES # (AUTO) 0.9 K/uL (2.0-11.5); LYMPHOCYTES % (AUTO) 4.5 % (20.5-51.1); MEAN CORPUSCULAR HEMOGLOBIN 32 pg (27-31); MEAN CORPUSCULAR HGB CONC 34 g/dL (33-37); MEAN CORPUSCULAR VOLUME 94.2 fL (80-94); MONOCYTES % (AUTO) 4.7 % (1.7-9.3); NEUTROPHILS # (AUTO) 18.3 K/uL (1.8-7.7); PLATELET COUNT (AUTO) 235 K/uL (140-450); RED BLOOD CELL COUNT(AUTO) 4.32 MIL/uL (4.20-6.10); RED CELL DISTRIBUTION WIDTH 13.1 % (11.6-13.7); WHITE BLOOD COUNT (AUTO) 20.2 K/uL (4.8-10.8)
--- NOTE | 2021-06-30 08:15 | NUR ---
ATTEMPTED TO CONNECT PATIENT TO BEDSIDE MONITOR, PATIENT DISCONNECTS AND PULLS OFF PULSE OX AND CARDIAC LEADS.
--- NOTE | 2021-06-30 09:00 | NUR ---
PATIENT PROVIDED WITH JUICE, CRACKERS AND JELLO UPON REQUEST
[2021-06-30 09:10] LABS: NEUTROPHILS % (AUTO) 90.7 % (42.2-75.2)
--- NOTE | 2021-06-30 09:15 | NUR ---
PATIENT REPORTS INCREASE IN PAIN, REVIEWED ORDERED MEDS. MEDICATED PER ORDERS
[2021-06-30] MEDS: LORATADINE 10 MG TAB PO SCH (09:17)
[2021-06-30] MEDS: PANTOPRAZOLE 40 MG TABEC PO SCH (09:18)
--- NOTE | 2021-06-30 09:55 | NUR ---
Patient appears to be resting comfortably in bed. Vital Signs within normal limits. Respirations even and unlabored. Will continue to monitor
--- NOTE | 2021-06-30 10:10 | NUR ---
PATIENT TAKEN TO CT
--- NOTE | 2021-06-30 10:20 | NUR ---
PATIENT BROUGHT BACK FROM CT.
--- NOTE | 2021-06-30 10:40 | NUR ---
ATTEMPTED TO RECONNECT PATIENT TO BEDSIDE MONITOR, PATIENT CONTINUOUSLY DISCONNECTS PULSE OX AND BP CUFF. PATIENT INCONTINENT IN BED, ATTEMPTED TO HELP PATIENT WITH NEW LINENS AND BEDSIDE CARE. PATIENT DECLINES.
--- NOTE | 2021-06-30 11:25 | NUR ---
PATIENT DISCONNECTED NASAL CANNULA, RECONNECTED PATIENT TO O2. PROVIDED WITH WARM BLANKET. PATIENT RESTING IN BED.
--- NOTE | 2021-06-30 14:00 | NUR ---
SPOKE TO JOHNNY, FOR UPDATE ON PATIENT
--- NOTE | 2021-06-30 14:07 | NUR ---
PATIENT RESTING IN BED, NO SIGNS OF DISTRESS NOTED AT THIS TIME. WILL CONTINUE TO MONITOR
--- NOTE | 2021-06-30 16:14 | NUR ---
DR. FUENTES EVALUATING PATIENT AT BEDSIDE
--- NOTE | 2021-06-30 16:30 | NUR ---
NOVEL SPECIMEN COLLECTED AND TAKEN TO LAB
[2021-06-30] MEDS ORDERED: HALOPERIDOL IM 5 MG/ML VIAL IM SCH (16:35)
[2021-06-30] MEDS ORDERED: LORazepam 2 MG/ML VIAL IVP SCH (16:35)
--- NOTE | 2021-06-30 16:45 | NUR ---
PATIENT HAS INCREASE IN ANXIETY AND AGITATION, FLAILING ARMS AND BEING UNCOOPERATIVE WITH STAFF. MEDICATED PER ORDERS
--- NOTE | 2021-06-30 17:20 | NUR ---
PATIENT PULLED OUT 20 G LAC IV
--- NOTE | 2021-06-30 17:25 | NUR ---
RAC 18G IV INSERTED, SECURED BY VILMA BANDAGE
[2021-06-30] MEDS ORDERED: VANCOMYCIN PER PHARMACY MC PRN (17:35)
[2021-06-30] MEDS ORDERED: LORazepam 2 MG/ML VIAL IVP PRN (17:35)
--- NOTE | 2021-06-30 17:53 | NUR ---
PATIENT TAKEN TO CT
[2021-06-30] MEDS ORDERED: VANCOMYCIN 1GM/DEXT 5% PREMIX 200 ML IV SCH (18:05)
--- NOTE | 2021-06-30 18:15 | NUR ---
PATIENT RETURNED FROM CT, RESTING IN BED. CONNECTED TO BEDSIDE MONITOR
--- NOTE | 2021-06-30 19:30 | NUR ---
Pt report given to PROMISE JIMENEZ. Transfer of care at this time.
--- NOTE | 2021-06-30 20:00 | NUR ---
REPORT CALLED TO PROMISE MARIE
--- NOTE | 2021-06-30 20:40 | NUR ---
TO [facility] VIA GURNEY, ATTACHED TO CM ACCOMPANIED BY RN AND ERT
--- NOTE | 2021-06-30 20:50 | NUR ---
PATIENT WAS BROUGHT TO [facility] ALERT, CONFUSED. NO ACUTE DISTRESS NOTED. RESPIRATION EVEN UNLABORED. O2 AT 4L NC TOLERATING WELL SATING AT 98%. SAFETY MEASURES IN PLACE. CALL LIGHT WITHIN REACH. ORIENTED TO CALL LIGHT, ROOM AND STAFF. MRSA SCREENING DONE. WILL CONTINUE TO MONITOR.
[2021-06-30] MEDS ORDERED: HEPARIN PER PHARMACY MC SCH (22:15)
[2021-06-30] MEDS ORDERED: PIPERACILLIN/TAZOBACTAM 3.375 GM VIAL IV ONE (22:34)
[2021-06-30] MEDS: PIPERACILLIN/TAZOBACTAM 3.375 GM in DEXTROSE 5% 50 ML IV SCH (22:58)
[2021-07-01] VITALS: BP 118/73
--- NOTE | 2021-07-01 00:15 | NUR ---
PATIENT STARTED HEPARIN DRIP ORDERED BY MD PER PROTOCOL.
[2021-07-01] MEDS: hePARIN / DEXT 5% PREMIX 250 ML IV SCH ×2 (00:16→18:00)
--- NOTE | 2021-07-01 02:53 | NUR ---
PATIENT IS KEPT CLEAN, DRY AND COMFORTABLE. NO SOB. NO COMPLAINTS OF PAIN.
[2021-07-01 04:00] VITALS: BP 126/81
[2021-07-01] MEDS ORDERED: PIPERACILLIN/TAZOBACTAM 3.375 GM VIAL IV ONE (05:20)
[2021-07-01] MEDS: PIPERACILLIN/TAZOBACTAM 3.375 GM in DEXTROSE 5% 50 ML IV SCH (05:25)
[2021-07-01 07:20] LABS: BASOPHILS % (AUTO) 0.2 % (0.0-2.0); HEMATOCRIT 35.6 % (36-52); HEMOGLOBIN 12.2 g/dL (12.0-18.0); LYMPHOCYTES # (AUTO) 1.5 K/uL (2.0-11.5); MEAN CORPUSCULAR HEMOGLOBIN 32 pg (27-31); MEAN CORPUSCULAR HGB CONC 34 g/dL (33-37); MEAN CORPUSCULAR VOLUME 92.4 fL (80-94); MONOCYTES % (AUTO) 8.2 % (1.7-9.3); NEUTROPHILS # (AUTO) 9.3 K/uL (1.8-7.7); NEUTROPHILS % (AUTO) 78.6 % (42.2-75.2); PLATELET COUNT (AUTO) 247 K/uL (140-450); RED BLOOD CELL COUNT(AUTO) 3.85 MIL/uL (4.20-6.10); WHITE BLOOD COUNT (AUTO) 11.8 K/uL (4.8-10.8)
--- NOTE | 2021-07-01 07:31 | NUR ---
ENDORSED PATIENT TO AM NURSE FOR CONTINUITY OF CARE. PT IS STABLE.
--- NOTE | 2021-07-01 07:32 | NUR ---
RECEIVED PATIENT REPORT FROM [employer]ISSION FOR THE BLIND DIRECTOR NURSE FOR CONTINUITY OF CARE. PT IS AOX2. RESPIRATIONS EVEN AND UNLABORED. ON 4L NC. NO ACUTE DISTRESS NOTED. SKIN IS WARM, DRY, AND INTACT. IV SITE INTACT AND PATENT. DENIES PAIN AT THE MOMENT. PLAN OF CARE DISCUSSED. SAFETY MEASURES IN PLACE. CALL LIGHT WITHIN REACH. ORIENTED TO CALL LIGHT, ROOM AND STAFF. WILL CONTINUE TO MONITOR.
[2021-07-01 07:53] LABS: ANION GAP 10.4 (8-16); CARBON DIOXIDE 26.4 mmol/L (21-32); CHLORIDE 108 mmol/L (98-107); CREATININE 0.8 mg/dL (0.6-1.3); GLUCOSE 91 mg/dL (74-106); POTASSIUM 3.8 mmol/L (3.5-5.1); SODIUM SERUM 141 mmol/L (136-145); UREA NITROGEN, BLOOD 19 mg/dL (7-18)
[2021-07-01 08:00] VITALS: BP 112/70
[2021-07-01] MEDS ORDERED: ENOXAPARIN 40 MG/0.4 ML SYR SUBQ SCH (09:00)
[2021-07-01] MEDS: LORATADINE 10 MG TAB PO SCH (09:23)
[2021-07-01] MEDS: PANTOPRAZOLE 40 MG TABEC PO SCH (09:23)
--- NOTE | 2021-07-01 09:30 | NUR ---
ALL SCHEDULED MEDS GIVEN. PT IS STABLE. NO DISTRESS NOTED. WILL CONTINUE TO MONITOR
--- NOTE | 2021-07-01 11:39 | NUR ---
(07/01/21) RD INITIAL ASSESSMENT COMPLETED PLEASE REFER TO NUTRITION ASSESSMENT UNDER CARE ACTIVITY FOR ESTIMATED NUTRITIONAL NEEDS. RD RECOMMENDATIONS: 1. CONTINUE ON CARDIAC DIET TOLERATED. 2. CONSULT RDN PRN. 3. RD WILL F/U 3-5 DAYS; MODERATE RISK. CARLOS ALBA MS, RDN
--- NOTE | 2021-07-01 11:50 | NUR ---
CHECKED ON PATIENT. PT IS STABLE. NO DISTRESS NOTED. WILL CONTINUE TO MONITOR
[2021-07-01 12:00] VITALS: BP 123/72
[2021-07-01] MEDS ORDERED: FUROSEMIDE 20 MG/2 ML VIAL IVP SCH (13:50)
--- NOTE | 2021-07-01 15:30 | NUR ---
RIGHT WRIST IV DISLODGED. REINSERTED NEW 22G RFA. INTACT AND PATENT. SALINE FLUSHED
[2021-07-01] MEDS: METOPROLOL SUCCINATE 50 MG TABER PO SCH (15:35)
--- NOTE | 2021-07-01 15:59 | NUR ---
ADMINISTERED TYLENOL PO PRN DUE TO ELEVATED TEMP OF 101.4
[2021-07-01 16:00] VITALS: BP 120/68
--- NOTE | 2021-07-01 16:23 | NUR ---
PATIENT SHOWING SIGNS OF INCREASED AGITATION. ADMINISTERED PRN ATIVAN PER MD ORDERED
--- NOTE | 2021-07-01 19:56 | NUR ---
ENDORSED TO CAFETERIA OPERATOR NURSE FOR CONTINUITY OF CARE
[2021-07-01 20:00] VITALS: BP 120/73
--- NOTE | 2021-07-01 23:35 | NUR ---
PATIENT NOT ALERT APPEARS LETHARGIC SLEEPY. ALSO APPEARS HOMELESS IS ON HEPARIN DRIP NEXT PTT 0000. PCR PENDING PATIENT SAT 94% ON ROOM AIR. PATIENT WILL NOT KEEP ON N/C 3 LITERS. PATIENT SINUS TACH ON MONITOR 102 HEART RATE. HEPARIN INFUSING AT 1400 UNITS HOUR. ALSO N S INFUSING AT 40 HOUR. NO DISTRESS NOTED.
[2021-07-02] VITALS: BP 115/70
--- NOTE | 2021-07-02 01:43 | NUR ---
PATIENT PTT RESULTS FROM LAB AT 0055 58.4 NO CHANGE. HEPARIN CONTINUE TO RUN 1400 UNITS HOUR. NEXT PTT 0700.
[2021-07-02 04:00] VITALS: BP 116/72
--- NOTE | 2021-07-02 07:23 | NUR ---
RECEIVED PATIENT FROM EXCAVATION LABORER NURSE FOR CONTINUITY OF CARE. PATIENT IS SLEEPING, CHEST RISE AND FALL NOTED. AROUSABLE TO VOICE. A/A/O X2, WITH EPISODE OF CONFUSION. SKIN WARM, DRY, NON DIAPHORETIC. IV ON RIGHT HAND 24G, INTACT AND PATENT, IS INFUSING HEPARIN DRIP @ 1400 UNIT/HR AND NS @40ML/HR. ABLE TO MAKE NEED KNOWN. DENIES ANY PAIN AT THIS TIME. PLAN OF CARE DISCUSSED, PATIENT VERBALIZED UNDERSTANDING. PRECAUTION IN PLACE. CALL LIGHT WITHIN REACH. WILL CONTINUE TO MONITOR.
[2021-07-02 08:00] VITALS: BP 128/79
[2021-07-02 08:43] LABS: BASOPHILS % (AUTO) 0.2 % (0.0-2.0); HEMATOCRIT 41.1 % (36-52); HEMOGLOBIN 13.8 g/dL (12.0-18.0); LYMPHOCYTES # (AUTO) 1.3 K/uL (2.0-11.5); MEAN CORPUSCULAR HEMOGLOBIN 32 pg (27-31); MEAN CORPUSCULAR HGB CONC 34 g/dL (33-37); MEAN CORPUSCULAR VOLUME 94.3 fL (80-94); MONOCYTES # (AUTO) 0.6 K/uL (0.8-1.0); MONOCYTES % (AUTO) 6.2 % (1.7-9.3); NEUTROPHILS # (AUTO) 7.9 K/uL (1.8-7.7); NEUTROPHILS % (AUTO) 80.6 % (42.2-75.2); PLATELET COUNT (AUTO) 299 K/uL (140-450); RED BLOOD CELL COUNT(AUTO) 4.35 MIL/uL (4.20-6.10); RED CELL DISTRIBUTION WIDTH 12.9 % (11.6-13.7); WHITE BLOOD COUNT (AUTO) 9.8 K/uL (4.8-10.8)
[2021-07-02 08:44] LABS: ANION GAP 14.2 (8-16); CARBON DIOXIDE 25.2 mmol/L (21-32); CHLORIDE 105 mmol/L (98-107); CREATININE 0.9 mg/dL (0.6-1.3); GLUCOSE 101 mg/dL (74-106); POTASSIUM 3.4 mmol/L (3.5-5.1); SODIUM SERUM 141 mmol/L (136-145); UREA NITROGEN, BLOOD 19 mg/dL (7-18)
[2021-07-02] MEDS: LORATADINE 10 MG TAB PO SCH (09:56)
[2021-07-02] MEDS: METOPROLOL SUCCINATE 50 MG TABER PO SCH (09:56)
[2021-07-02] MEDS: PANTOPRAZOLE 40 MG TABEC PO SCH (09:56)
--- NOTE | 2021-07-02 10:16 | NUR ---
TEXT DR JACKSON REGARDING PATIENT KEEP REMOVING IV LINE WHILE PT IS ON HEPARIN DRIP. DR FERNANDEZ, NEW ORDER RECEIVED. TORB CHANGE ROCEPHIN 1000MG IVPB TO IM. ENDORSE TO PHARMACY THE NEW ORDER.
[2021-07-02] MEDS: NACL 0.9% 1,000 ML IV SCH (10:17)
[2021-07-02] MEDS ORDERED: COMMUNICATION ORDER MC ONE (10:30)
[2021-07-02] MEDS: RIVAROXABAN 15 MG TAB PO SCH ×2 (10:54→21:25)
--- NOTE | 2021-07-02 11:50 | NUR ---
PATIENT'S , RONN, CALLED TO UPDATE PATIENT CONDITION. ALL QUESTIONS WERE ANSWERED.
[2021-07-02 12:00] VITALS: BP 135/80
[2021-07-02] MEDS: cefTRIAXone 1,000 MG in LIDOCAINE MPF 1% 2.1 ML IM SCH (12:01)
[2021-07-02] MEDS: metroNIDAZOLE 500 MG TAB PO SCH ×2 (12:06→21:23)
--- NOTE | 2021-07-02 12:06 | NUR ---
SCHEDULE MEDICATION GIVEN WITH EDUCATION. PATIENT TOLERATED WELL. NO SIGN OF DISTRESS NOTED. PRECAUTION IN PLACE. CALL LIGHT WITHIN REACH. WILL CONTINUE TO MONITOR.
--- NOTE | 2021-07-02 14:20 | NUR ---
PATIENT IS SLEEPING. CHEST RISE AND FALL NOTED. AROUSABLE TO VOICE. NO SIGN OF DISTRESS NOTED. PRECAUTION IN PLACE. CALL LIGHT WITHIN REACH. WILL CONTINUE TO MONITOR.
[2021-07-02 16:00] VITALS: BP 118/68
--- NOTE | 2021-07-02 16:30 | NUR ---
CLEAN AND CHANGE BED SHEET. PATIENT TOLERATED WELL. PRECAUTION IN PLACE. CALL LIGHT WITHIN REACH. WILL CONTINUE TO MONITOR.
--- NOTE | 2021-07-02 19:20 | NUR ---
ENDORSED PATIENT TO DIRECTOR WEIGHTS AND MEASURES NURSE FOR CONTINUITY OF CARE. PATIENT IS STABLE.
--- NOTE | 2021-07-02 20:59 | NUR ---
ADMINISTERED SCHEDULED MEDICATIONS PER MD ORDERED.
--- NOTE | 2021-07-02 21:00 | NUR ---
PATIENT IS AWAKE, ALERT, VERBALLY RESPONSIVE IN [place]. NO ACUTE DISTRESS NOTED. ON 2L O2 VIA NC TOLERATING WELL. SAFETY MEASURES IN PLACE. CALL LIGHT WITHIN REACH
[2021-07-03] VITALS: BP 139/79
--- NOTE | 2021-07-03 00:21 | NUR ---
PT LAYING IN BED , BS CLEAR/DIMINISHED THROUGHOUT, NO SIGNS OF RESPIRATORY DISTRESS NOTED AT THIS TIME. PT IS CURRENTLY SATING 97% ON RA. WILL CONTINUE TO MONITOR.
--- NOTE | 2021-07-03 03:55 | NUR ---
PATIENT CLEANED AND CHANGED. PT IS STABLE.
[2021-07-03] MEDS: NACL 0.9% 1,000 ML IV SCH (04:55)
[2021-07-03 06:45] LABS: CARBON DIOXIDE 23.6 mmol/L (21-32); CHLORIDE 106 mmol/L (98-107); CREATININE 0.8 mg/dL (0.6-1.3); GLUCOSE 78 mg/dL (74-106); POTASSIUM 3.6 mmol/L (3.5-5.1); SODIUM SERUM 140 mmol/L (136-145); UREA NITROGEN, BLOOD 19 mg/dL (7-18)
[2021-07-03 06:53] LABS: BASOPHILS % (AUTO) 0.3 % (0.0-2.0); EOSINOPHILS % (AUTO) 0.2 % (0.0-4.0); HEMATOCRIT 40.6 % (36-52); HEMOGLOBIN 13.7 g/dL (12.0-18.0); LYMPHOCYTES # (AUTO) 1.3 K/uL (2.0-11.5); LYMPHOCYTES % (AUTO) 17.2 % (20.5-51.1); MEAN CORPUSCULAR HEMOGLOBIN 32 pg (27-31); MEAN CORPUSCULAR HGB CONC 34 g/dL (33-37); MEAN CORPUSCULAR VOLUME 93.8 fL (80-94); MONOCYTES # (AUTO) 0.5 K/uL (0.8-1.0); MONOCYTES % (AUTO) 6.4 % (1.7-9.3); NEUTROPHILS # (AUTO) 5.8 K/uL (1.8-7.7); NEUTROPHILS % (AUTO) 75.9 % (42.2-75.2); PLATELET COUNT (AUTO) 304 K/uL (140-450); RED BLOOD CELL COUNT(AUTO) 4.33 MIL/uL (4.20-6.10); RED CELL DISTRIBUTION WIDTH 12.7 % (11.6-13.7); WHITE BLOOD COUNT (AUTO) 7.6 K/uL (4.8-10.8)
--- NOTE | 2021-07-03 07:52 | NUR ---
ENDORSED PATIENT TO AM NURSE FOR CONTINUITY OF CARE. PATIENT IS IN STABLE CONDITION.
--- NOTE | 2021-07-03 07:53 | NUR ---
RECEIVED BEDSIDE REPORT FROM RADIOGRAPHER TECHNOLOGIST NURSE FOR CONTINUITY OF CARE. PT BREATHING IS EVEN AND UNLABORED. ON RA. NO S/S OF DISTRESS NOTED. AOX2. NO IV ACCESS. IV MED IS GIVEN IM. PT IS STABLE.
[2021-07-03 08:00] VITALS: BP 114/81
[2021-07-03] MEDS: PANTOPRAZOLE 40 MG TABEC PO SCH (09:00)
[2021-07-03] MEDS: cefTRIAXone 1,000 MG in LIDOCAINE MPF 1% 2.1 ML IM SCH (09:00)
[2021-07-03] MEDS: LORATADINE 10 MG TAB PO SCH (09:00)
[2021-07-03] MEDS: RIVAROXABAN 15 MG TAB PO SCH ×2 (09:00→20:31)
[2021-07-03] MEDS: lisinopriL 5 MG TAB PO SCH (09:00)
[2021-07-03] MEDS: METOPROLOL SUCCINATE 50 MG TABER PO SCH (09:00)
[2021-07-03] MEDS ORDERED: cefTRIAXone 1,000 MG VIAL ONE (09:18)
[2021-07-03] MEDS ORDERED: LIDOCAINE MPF 1% 0 ML ONE (09:18)
--- NOTE | 2021-07-03 11:45 | NUR ---
PT HAD LARGE BM. PT BREATHING IS EVEN AND UNLABORED. ON RA. NO S/S OF DISTRESS NOTED. AOX2. NO IV ACCESS. PT IS STABLE.
--- NOTE | 2021-07-03 14:58 | NUR ---
PT SLEEPING. PT BREATHING IS EVEN AND UNLABORED. ON RA. NO S/S OF DISTRESS NOTED. PT IS STABLE.
[2021-07-03 16:00] VITALS: BP 121/69
--- NOTE | 2021-07-03 19:20 | NUR ---
RECEIVED PATIENT STANDING IN HALLWAY, RE-ORIENTED BACK TO ROOM, PATIENT COMPLIED. PATIENT IS AXO X 1-2, CONFUSED BUT ABLE TO RE-ORIENT, AMBULATORY WITHOUT ASSISTANCE, STEADY GAIT, DENIES PAIN/SOB/RESPIRATORY DISTRESS. INFORMED PATIENT TO REMAIN IN ROOM, PATIENT VERBALIZED UNDERSTANDING. WILL CONTINUE TO CLOSELY MONITOR.
--- NOTE | 2021-07-03 19:30 | NUR ---
PT ENDORSED TO [facility]IGHT [facility] NURSE FOR CONTINUITY OF CARE. POC DISCUSSED.
[2021-07-04] VITALS: BP 119/72
--- NOTE | 2021-07-04 04:02 | NUR ---
PT LAYING IN BED , BS CLEAR/DIMINISHED THROUGHOUT, NO SIGNS OF RESPIRATORY DISTRESS NOTED AT THIS TIME. PT IS CURRENTLY SATING 98% ON RA. WILL CONTINUE TO MONITOR.
[2021-07-04] MEDS: NACL 0.9% 1,000 ML IV SCH (04:55)
[2021-07-04 07:03] LABS: ANION GAP 13.5 (8-16); CARBON DIOXIDE 24.4 mmol/L (21-32); CHLORIDE 106 mmol/L (98-107); CREATININE 0.9 mg/dL (0.6-1.3); GLUCOSE 93 mg/dL (74-106); POTASSIUM 3.9 mmol/L (3.5-5.1); SODIUM SERUM 140 mmol/L (136-145); UREA NITROGEN, BLOOD 21 mg/dL (7-18)
--- NOTE | 2021-07-04 07:21 | NUR ---
PATIENT ENDORSED TO PROMISE CYR FOR CONTINUITY OF CARE. PATIENT SITTING IN BED EATING SANDWICH. PT STABLE.
[2021-07-04] MEDS: METOPROLOL SUCCINATE 50 MG TABER PO SCH (09:00)
[2021-07-04] MEDS: LORATADINE 10 MG TAB PO SCH (09:00)
[2021-07-04] MEDS: RIVAROXABAN 15 MG TAB PO SCH (09:00)
[2021-07-04] MEDS: PANTOPRAZOLE 40 MG TABEC PO SCH (09:00)
[2021-07-04] MEDS: cefTRIAXone 1,000 MG in LIDOCAINE MPF 1% 2.1 ML IM SCH (09:00)
[2021-07-04] MEDS: lisinopriL 5 MG TAB PO SCH (09:00)
[2021-07-04] MEDS ORDERED: RIVA20TA PO (09:15)
[2021-07-04] MEDS ORDERED: METO25TA PO (09:15)
[2021-07-04] MEDS ORDERED: CEPH-588 PO (09:15)
[2021-07-04] MEDS ORDERED: RIVA15TA1 PO (09:15)
[2021-07-04 09:26] LABS: BASOPHILS % (AUTO) 0.4 % (0.0-2.0); EOSINOPHILS % (AUTO) 0.6 % (0.0-4.0); HEMATOCRIT 39.7 % (36-52); HEMOGLOBIN 13.8 g/dL (12.0-18.0); LYMPHOCYTES # (AUTO) 1.4 K/uL (2.0-11.5); MEAN CORPUSCULAR HEMOGLOBIN 32 pg (27-31); MEAN CORPUSCULAR HGB CONC 35 g/dL (33-37); MEAN CORPUSCULAR VOLUME 92.3 fL (80-94); MONOCYTES # (AUTO) 0.6 K/uL (0.8-1.0); MONOCYTES % (AUTO) 7.5 % (1.7-9.3); NEUTROPHILS # (AUTO) 5.5 K/uL (1.8-7.7); NEUTROPHILS % (AUTO) 72.5 % (42.2-75.2); PLATELET COUNT (AUTO) 352 K/uL (140-450); RED BLOOD CELL COUNT(AUTO) 4.31 MIL/uL (4.20-6.10); RED CELL DISTRIBUTION WIDTH 12.9 % (11.6-13.7); WHITE BLOOD COUNT (AUTO) 7.5 K/uL (4.8-10.8)
[2021-07-04 15:15] VITALS: BP 119/72
--- NOTE | 2021-07-04 17:00 | NUR ---
DC PATIENT TO . PT STABLE.
== END 2021-07-04 16:30 | disposition home or self-care (01) | DRG 871 ==
LOC: MED 20:04 → MTU 06-30 04:59 → MMU 06-30 19:44
PROVIDERS: ADMIT Hospitalist; ATTEND Hospitalist
DX: A41.9 Sepsis, unspecified organism (principal); J96.01 Acute respiratory failure with hypoxia; E43 Unspecified severe protein-calorie malnutrition; I26.99 Other pulmonary embolism without acute cor pulmonale; J69.0 Pneumonitis due to inhalation of food and vomit; I50.22 Chronic systolic (congestive) heart failure; D68.59 Other primary thrombophilia; I27.20 Pulmonary hypertension, unspecified; I48.91 Unspecified atrial fibrillation; F17.210 Nicotine dependence, cigarettes, uncomplicated; Z60.2 Problems related to living alone; I35.8 Other nonrheumatic aortic valve disorders; F15.90 Other stimulant use, unspecified, uncomplicated; J32.3 Chronic sphenoidal sinusitis; J43.9 Emphysema, unspecified; Z20.822 Contact with and (suspected) exposure to COVID-19; Z59.00 Homelessness unspecified; Z86.73 Personal history of transient ischemic attack (TIA), and cerebral infarction without residual deficits; Z68.22 Body mass index [BMI] 22.0-22.9, adult
CPT/HCPCS: 36415; 36600; 70450; 71045; 71275; 80048; 80053; 82140; 82803; 83605; 83880; 84484; 85025; 85379; 85610; 85730; 87040; 87081; 93005; 94640; 96365; 96375; 96376; 97163-GP; 97530; 99285; G0482; J0456; J0696; J1100; J1200; J1630; J1644; J2001; J2060; J2270; J2543; J3490; J7060; Q0092; Q9967; U0003